=== PATIENT | male | born 1950 | race Two or more races ===

== ENCOUNTER 2020-02-16 16:07 | Inpatient (IN) | payer OTHER ==
[~2020-02-16] VITALS: Ht 180.3 cm; Wt 68.0 kg
[2020-02-16] MEDS: Enoxaparin 40mg Inj SUBQ SCH (01:58)
--- NOTE | 2020-02-16 16:09 | NUR ---
ED Nurse Note: pt brought in by [address] for to etoh consumption. pt is alert x3. able to make needs known,.
[2020-02-16 16:10] VITALS: BP 130/80
--- NOTE | 2020-02-16 16:15 | Emergency Room Report ---
History of Present Illness General Chief Complaint: Alcohol Intoxication Source: EMS (Michaela Reyna) Present Illness HPI 67-year-old male presents to the emergency department brought by ambulance for altered level of consciousness. EMS was called by bystander. Per EMS there is a strong "scent of alcohol "coming from the patient. Patient is ANO x1. Originally a Aleksandr Pena upon arrival however patient states his name is "ship "he is arousable and provides limited answers to HPI and ROS questions. Patient denies past medical history he states he is not taking any medications. He denies pain at this time. Patient denies difficulty breathing, headache, dizziness or recent fall. He denies neck or back pain. Patient reports that he is "tired "the patient reports that he does not have any family to contact. No other aggravating or relieving factors. (Michaela Reyna) Allergies: Coded Allergies: No Known Allergies (Unverified , 02/16/20) COVID-19 Screening Contact w/high risk pt: No Recent Travel to affected area: No Experienced COVID-19 symptoms?: No (Michaela Reyna) Patient History Past Medical History: see triage record Past Surgical History: none Pertinent Family History: none Reviewed Nursing Documentation: PMH: Agreed; PSxH: Agreed (Michaela Reyna) Review of Systems All Other Systems: negative except mentioned in HPI (Michaela Reyna) Physical Exam Vital Signs Date Time Temp Pulse Resp B/P (MAP) Pulse Ox O2 Delivery O2 Flow Rate FiO2 02/16/20 16:04 97.3 89 16 136/77 (96) 98 Room Air Sp02 EP Interpretation: reviewed, normal General Appearance: no apparent distress, alert - alert but not oriented., GCS 15, non-toxic, thin Head: normocephalic, atraumatic Eyes: bilateral eye normal inspection, bilateral eye PERRL ENT: hearing grossly normal, normal voice Neck: full range of motion Respiratory: chest non-tender, lungs clear, normal breath sounds, no wheezing, speaking full sentences Cardiovascular #1: regular rate, rhythm, no edema Gastrointestinal: non tender, soft Rectal: deferred Genitourinary: normal inspection Musculoskeletal: back normal, normal range of motion, gait/station normal, non- tender Neurologic: alert, sensory intact, responsive, speech normal, other - follows some commands with repeated redirectioning. able to scoot himself over in the gurney. motor weakness- generalized. Psychiatric: no suicidal/homicidal ideation, no delusions Skin: normal color, normal inspection (Michaela Reyna) Medical Decision Making PA Attestation Dr. Beebe is my supervising Physician whom patient management has been discussed with. (Michaela Reyna) PA Attestation I participate in the care of this patient along with VERA Gtz Briefly, this is 67-year-old male who was brought into the emergency department for altered mental status concern for alcohol intoxication. He is somnolent but arousable and can follow some simple commands. Alcohol level was undetectable as were salicylates and acetaminophen. The patient sodium is significantly elevated concerning for hyponatremia. IV fluid correction started. Urine electrolytes ordered. CT scan of the head was also performed which shows some diffuse encephalomalacia and an old thalamic infarct but no acute intracranial process was identified. Patient will require admission. (Leonid Beebe MD) Diagnostic Impression: Primary Impression: Acute hypernatremia ER Course 67-year-old male presents to the emergency department brought by ambulance for altered level of consciousness. EMS was called by bystander. Per EMS there is a strong "scent of alcohol "coming from the patient. Patient is ANO x1. Originally a Aleksandr Pena upon arrival however patient states his name is "ship "he is arousable and provides limited answers to HPI and ROS questions. Patient denies past medical history he states he is not taking any medications. He denies pain at this time. Patient denies difficulty breathing, headache, dizziness or recent fall. He denies neck or back pain. Patient reports that he is "tired "the patient reports that he does not have any family to contact. No other aggravating or relieving factors. Pt is still moaning, arousable to loud verbal commands, or painful stimuli-- limited answers to HPI and ROS questions. Ddx considered but are not limited to OD, SI/HI, psychosis, UTI, intoxication, intracranial process, ETOH, Sepsis Vital signs: are WNL, pt. is afebrile H&PE are most consistent with possible intoxication. There is no obvious signs of trauma. ORDERS: -CBC; -CMP: -AccuCheck: -UA: -UDS: -Psych panel ordered: see results attached - ED INTERVENTIONS: - 1000cc NS - rate of 200mls/Hr... -- calc fluid deficit: 4.6L DISPOSITION: (Michaela Reyna) CT/MRI/US Diagnostic Results CT/MRI/US Diagnostic Results : Imaging Test Ordered: CT Head No Contrast Impression " Diffuse encephalomalacia and small vessel disease and old thalamic infarct. No acute intracranial process." Per official radiology report- Please see report for specific details. (Michaela Reyna) Last Vital Signs Date Time Temp Pulse Resp B/P (MAP) Pulse Ox O2 Delivery O2 Flow Rate FiO2 02/16/20 16:04 97.3 89 16 136/77 (96) 98 Room Air (Michaela Reyna) Disposition: ADMITTED INPATIENT Condition: Serious Michaela Reyna Feb 16, 2020 16:15 Leonid Beebe MD Feb 16, 2020 17:53
--- NOTE | 2020-02-16 16:27 | NUR ---
ED Nurse Note: blood sample sent to lab. pt unable to urinate at this time.
--- NOTE | 2020-02-16 16:31 | NUR ---
ED Nurse Note: pt taken to CT scan
--- NOTE | 2020-02-16 16:40 | NUR ---
ED Nurse Note: back from ct
[2020-02-16 16:45] LABS: BASOPHILS % (AUTO) 0.9 % (0.0-2.0); EOSINOPHILS % (AUTO) 0.1 % (0.0-3.0); HEMATOCRIT 48.2 % (42.0-52.0); HEMOGLOBIN 15.6 G/DL (14.2-18.0); LYMPHOCYTES % (AUTO) 23.2 % (20.0-45.0); MEAN CORPUSCULAR VOLUME 97 FL (80-99); MONOCYTES % (AUTO) 9.3 % (1.0-10.0); NEUTROPHILS % (AUTO) 66.6 % (45.0-75.0); PLATELET COUNT 259 K/UL (150-450); RED BLOOD COUNT 4.96 M/UL (4.70-6.10); RED CELL DISTRIBUTION WIDTH 15.4 % (11.6-14.8); WHITE BLOOD COUNT 7.2 K/UL (4.8-10.8)
[2020-02-16 16:57] LABS: ANION GAP 15 mmol/L (5-15); BLOOD UREA NITROGEN 59 mg/dL (7-18); CALCIUM 9.8 MG/DL (8.5-10.1); CARBON DIOXIDE 27 MMOL/L (21-32); CHLORIDE 117 MMOL/L (98-107); CREATININE 1.9 MG/DL (0.55-1.30); POTASSIUM 3.7 MMOL/L (3.5-5.1); SODIUM 159 MMOL/L (136-145)
--- NOTE | 2020-02-16 17:09 | Diagnostic Imaging Report ---
EXAM: CT Head Without Intravenous Contrast CLINICAL HISTORY: PAIN TECHNIQUE: Axial computed tomography images of the head/brain without intravenous contrast. CTDI is 53.4 mGy and DLP is 977.7 mGy-cm. One or more of the following dose reduction techniques were used: automated exposure control, adjustment of the mA and/or kV according to patient size, use of iterative reconstruction technique. COMPARISON: No relevant prior studies available. FINDINGS: No intracranial hemorrhage, abnormal intra- or extra-axial collections or parenchymal lesions are seen. There are involutional changes with prominence of the sulci, basal cisterns and ventricles. Scattered white matter hypoattenuations are present, likely from small vessel disease. There is left inferior frontal, left cerebellar and posterior parietal and right parafalcine posterior parietal/occipital hypoattenuation/encephalomalacia. Old left thalamic infarct. The peterson- white differentiation is preserved. No evidence of mass effect or midline shift. The osseous structures are unremarkable. The visualized portions of the paranasal sinuses are clear. Mastoid air cells are clear. IMPRESSION: 1. No acute intracranial process. 2. Involutional changes with small vessel disease. 3. There is left inferior frontal, left cerebellar and posterior parietal and right parafalcine posterior parietal/occipital hypoattenuation/encephalomalacia. Old left thalamic infarct.
[2020-02-16 17:13] LABS: ALANINE AMINOTRANSFERASE 41 U/L (12-78); ALBUMIN 4.2 G/DL (3.4-5.0); ALBUMIN/GLOBULIN RATIO 1.2 (1.0-2.7); ALKALINE PHOSPHATASE 55 U/L (46-116); ASPARTATE AMINO TRANSFERASE 58 U/L (15-37); BILIRUBIN,TOTAL 0.6 MG/DL (0.2-1.0)
--- NOTE | 2020-02-16 17:50 | NUR ---
ED Nurse Note: urine sample sent to lab
[2020-02-16 18:29] LABS: APPEARANCE,URINE CLEAR; BILIRUBIN, URINE NEGATIVE (NEGATIVE); COLOR,URINE PALE YELLOW; GLUCOSE, URINE (UA) NEGATIVE (NEGATIVE); KETONES,URINE 1+ (NEGATIVE); LEUKOCYTE ESTERASE ,URINE NEGATIVE (NEGATIVE); NITRITE,URINE NEGATIVE (NEGATIVE); PH,URINE 5 (4.5-8.0); PROTEIN,URINE NEGATIVE (NEGATIVE); UROBILINOGEN,URINE NORMAL MG/DL (0.0-1.0)
--- NOTE | 2020-02-16 18:35 | NUR ---
ED Nurse Note: report given to blessing lan. endorsed plan of care
[2020-02-16 19:05] VITALS: BP 125/84
--- NOTE | 2020-02-16 19:05 | NUR ---
HAND-OFF: Report given to Leona TINAJERO.
--- NOTE | 2020-02-16 19:05 | NUR ---
ED Nurse Note: pt resting in bed, vss no ss of distress noted.
--- NOTE | 2020-02-16 20:05 | NUR ---
ED Nurse Note: pt requested warm blankets, retrieved for pt. Pt stated that his name is "Imtiaz Feliciano" but unable to obtain further information.
[2020-02-16 21:45] VITALS: BP 155/79
[2020-02-16] MEDS ORDERED: Morphine Sulfate 2mg/ml Inj(IV/IM USE ONLY) IVP PRN (22:45)
[2020-02-16] MEDS ORDERED: LORazepam Inj 2mg/ml 1ml IV PRN (22:45)
[2020-02-16 23:05] VITALS: BP 154/68
--- NOTE | 2020-02-16 23:11 | NUR ---
ED Nurse Note: Report given to LIOR Trinidad
--- NOTE | 2020-02-16 23:30 | NUR ---
ER DISCHARGE NOTE: Patient is cleared to be discharged to med surg unit per ERMD, pt is aox3, on room air, with stable vital signs. pt was able to verbalize understanding. pt took all belongings. Report given to LIOR Trinidad. Pt transported to unit with 1 dietetic technician registered
[2020-02-16] MEDS ORDERED: D5NS 1,000 ML IV SCH (23:42)
--- NOTE | 2020-02-16 23:50 | NUR ---
NURSE NOTES: Patient arrived via gurney at 2039. Sleeping, but easy arousal. On room air with no signs of distress or SOB. Skin intact, but scrape on L elbow noted. Belongings checked and accounted for. IV intact and patent. Bed locked and in lowest position. Bed alarm activated. Call light in easy reach. New orders received. Will follow plan of care.
[2020-02-17] VITALS: BP 156/81
--- NOTE | 2020-02-17 02:43 | Diagnostic Imaging Report ---
EXAM: US Retroperitoneal Complete, Renal CLINICAL HISTORY: ABD PAIN TECHNIQUE: Real-time complete ultrasound of the retroperitoneum with image documentation. COMPARISON: No relevant prior studies available. FINDINGS: Left kidney measures 10.5 cm in length. No evidence of obstructive uropathy. No solid left renal mass identified. Diffuse increased echogenicity suggesting chronic medical renal disease. Echogenic kidneys are relatively large in size can be seen with HIV nephropathy. The right kidney measures 10.6 cm in length. No solid masses or evidence of obstructive uropathy. The urinary bladder is grossly unremarkable.
[2020-02-17 04:00] VITALS: BP 143/78
[2020-02-17 08:00] VITALS: BP 158/84
[2020-02-17 09:17] LABS: ALANINE AMINOTRANSFERASE 42 U/L (12-78); ALBUMIN 3.9 G/DL (3.4-5.0); ALBUMIN/GLOBULIN RATIO 1.3 (1.0-2.7); ALKALINE PHOSPHATASE 53 U/L (46-116); ANION GAP 11 mmol/L (5-15); ASPARTATE AMINO TRANSFERASE 59 U/L (15-37); BILIRUBIN,TOTAL 0.7 MG/DL (0.2-1.0); BLOOD UREA NITROGEN 39 mg/dL (7-18); CALCIUM 9.3 MG/DL (8.5-10.1); CARBON DIOXIDE 28 MMOL/L (21-32); CHLORIDE 125 MMOL/L (98-107); CHOLESTEROL 249 MG/DL (< 200); CREATININE 1.2 MG/DL (0.55-1.30); HDL CHOLESTEROL 92 MG/DL (40-60); POTASSIUM 3.7 MMOL/L (3.5-5.1); TRIGLYCERIDES 69 MG/DL (30-150)
[2020-02-17 09:18] LABS: SODIUM 165 MMOL/L (136-145)
--- NOTE | 2020-02-17 09:43 | NUR ---
NURSE NOTES: patient Na 165, got orders from dr. oJhnson, also notified dr Ferguson, left message as per dr Johnson request.
[2020-02-17 10:17] LABS: PHOSPHORUS 3.1 MG/DL (2.5-4.9)
[2020-02-17] MEDS ORDERED: Thiamine HCl 100 MG in D5W 55 ML IVPB SCH (11:00)
[2020-02-17 12:00] VITALS: BP 175/100
--- NOTE | 2020-02-17 12:25 | Consultation ---
Consult Note Consult Note Chief Complaint: Alcohol Intoxication 67-year-old male presents to the emergency department brought by ambulance for altered level of consciousness. EMS was called by bystander. Per EMS there is a strong "scent of alcohol "coming from the patient. Patient is ANO x1. Originally a Aleksandr Pena upon arrival however patient states his name is "ship "he is arousable and provides limited answers to HPI and ROS questions. Patient denies past medical history he states he is not taking any medications. He denies pain at this time. Patient denies difficulty breathing, headache, dizziness or recent fall. He denies neck or back pain. Patient reports that he is "tired "the patient reports that he does not have any family to contact. No other aggravating or relieving factors. No Known Allergies (Unverified , 02/16/20) COVID-19 Screening Contact w/high risk pt: No Recent Travel to affected area: No Experienced COVID-19 symptoms?: No Patient seen and examined Data reviewed Assessment/Plan Patient presents with renal failure creatinine of 1.9 Most likely dehydration Hypernatremia indicative free water deficit Alcohol abuse Hydrate with D5W Monitor electrolytes and renal parameters IV thiamine Start p.o. as soon as the patient is more awake Speech therapy evaluation Per orders Landon Ferguson MD Feb 17, 2020 12:25
--- NOTE | 2020-02-17 12:39 | History & Physical ---
History and Physical History & Physicial Patient seen and examined. Full Dictation completed Price Johnson MD Feb 17, 2020 12:39
[2020-02-17 16:00] VITALS: BP 164/98
--- NOTE | 2020-02-17 17:45 | History and Physical Report ---
DATE OF ADMISSION: 02/16/2020 SOURCE OF INFORMATION: The patient and EMR. HISTORY OF PRESENT ILLNESS: The patient is a 67-year-old male who presented with confusion to the ER. He was found to have a high level of sodium, poor historian. Source of information is from the ER documentation. Reportedly, the patient had been transferred via EMS given the high scent of alcohol. Presumptively the patient has been using high level of alcohol. At the time of evaluation, the patient appears delirious. REVIEW OF SYSTEMS: Limited as mentioned above. SOCIAL HISTORY: Unobtainable. ALLERGIES: Unobtainable. FAMILY HISTORY: Unobtainable. PAST MEDICAL AND SURGICAL HISTORY: Unobtainable. PHYSICAL EXAMINATION: VITAL SIGNS: Blood pressure 140/80, temperature 98.2, pulse oximetry 98% on room air, temperature 97.3, respiratory rate 18. HEAD AND NECK: Atraumatic and normocephalic. CHEST: Clear to auscultation. HEART: S1 and S2. Regular rate and rhythm. ABDOMEN: Soft. No organomegaly. MUSCULOSKELETAL: No gross lateralization of motor deficit. NEUROLOGIC: The patient is delirious. DIAGNOSTIC DATA: Head CT head 02/16/2020 reviewed. ASSESSMENT: 1. Acute toxic encephalopathy. 2. CVA-history of. 3. Hypernatremia. 4. Acute renal failure. 5. Dehydration. 6. Abnormal LFT. 7. GI and DVT prophylaxis. PLAN OF CARE: We will continue with hydration. We will do panculture. We will check hepatitis panel. Nephrology consulted. Time of this dictation does not reflect the actual time of encounter. Price Johnson M.D. DR: Jatinder JOB#: [id number] CC:
[2020-02-17] MEDS ORDERED: LORazepam Inj 2mg/ml 1ml IM PRN (19:30)
--- NOTE | 2020-02-17 19:30 | NUR ---
HAND-OFF: Report given to LIOR Hopkins.
--- NOTE | 2020-02-17 19:30 | Initial Psychiatric Evaluation ---
Psychiatry Consultation Psychiatry Consultation Chief Complaint: Alcohol Intoxication Allergies: Coded Allergies: No Known Allergies (Unverified , 02/16/20) Patient History History Provided By: Patient, Medical Record Objective Data Height (Feet): 5 Height (Inches): 11.00 Weight (Pounds): 150 Appearance: disheveled Behavior Mannerisms: good eye contact Speech: clear Additional Comments: mood is anxious. Affect is flat. Thought process, there is a paucity of thought content. Thought content, no suicidal or homicidal ideation. Cognition is impaired. Insight and judgment, impaired. Assessment/Plan Status: stable Diagnosis Beverly I: Alcohol dependence. PLAN: 1. Thiamine 100 milligram. 2. Folate. 3. Ativan as needed. Brett Mora MD Feb 17, 2020 19:30
--- NOTE | 2020-02-17 19:50 | NUR ---
NURSE NOTES: Patient is resting in bed. On room air with no signs of distress or SOB. IV intact and running IVF as ordered. NPO status in progress. Bed locked and in lowest position. Bed alarm activated. Call light in reach. Will continue to monitor the patient.
[2020-02-17 20:00] VITALS: BP 169/97
--- NOTE | 2020-02-17 20:10 | NUR ---
Diet changed to NPO except ice chips/meds per Dr. Johnson.
[2020-02-17] MEDS: Enoxaparin 40mg Inj SUBQ SCH (23:45)
[2020-02-18] VITALS: BP 140/88
[2020-02-18 04:00] VITALS: BP 159/96
[2020-02-18 07:04] LABS: ALANINE AMINOTRANSFERASE 37 U/L (12-78); ALBUMIN 3.5 G/DL (3.4-5.0); ALKALINE PHOSPHATASE 51 U/L (46-116); ANION GAP 9 mmol/L (5-15); ASPARTATE AMINO TRANSFERASE 51 U/L (15-37); BILIRUBIN,TOTAL 0.7 MG/DL (0.2-1.0); BLOOD UREA NITROGEN 23 mg/dL (7-18); CALCIUM 9.2 MG/DL (8.5-10.1); CARBON DIOXIDE 30 MMOL/L (21-32); CHLORIDE 119 MMOL/L (98-107); CREATININE 1.4 MG/DL (0.55-1.30); GAMMA GLUTAMYL TRANSPEPTIDASE 21 U/L (5-85); PHOSPHORUS 2.6 MG/DL (2.5-4.9); POTASSIUM 3.4 MMOL/L (3.5-5.1); SODIUM 158 MMOL/L (136-145)
[2020-02-18 07:10] LABS: BASOPHILS % (AUTO) 3.1 % (0.0-2.0); EOSINOPHILS % (AUTO) 1.1 % (0.0-3.0); HEMATOCRIT 44.3 % (42.0-52.0); HEMOGLOBIN 15.7 G/DL (14.2-18.0); LYMPHOCYTES % (AUTO) 38.3 % (20.0-45.0); MEAN CORPUSCULAR VOLUME 92 FL (80-99); MONOCYTES % (AUTO) 10.5 % (1.0-10.0); PLATELET COUNT 220 K/UL (150-450); RED BLOOD COUNT 4.84 M/UL (4.70-6.10); RED CELL DISTRIBUTION WIDTH 14.7 % (11.6-14.8); WHITE BLOOD COUNT 5.2 K/UL (4.8-10.8)
--- NOTE | 2020-02-18 07:14 | NUR ---
NURSE NOTES: Potassium noted to be 3.4; Sodium 158. Left message for Dr. Ferguson. Awaiting orders.
--- NOTE | 2020-02-18 07:15 | NUR ---
HAND-OFF: Report given to LIOR Moscoso. Endorsed plan of care and fall risk status.
[2020-02-18 08:00] VITALS: BP 145/80
[2020-02-18] MEDS ORDERED: HydrALAZINE 25mg tab ORAL PRN (08:00)
--- NOTE | 2020-02-18 08:00 | NUR ---
NURSE NOTES: received pt seated at the edge of the bed, pt had urinated on floor. Nurse cleaned the floor. He also pulled off IV access, dry blood seen at previous IV site. Patient is confuse, can't understand nurse's commands, repeats her sometimes. Bed locked at the lowest position possible, call light within easy reach, siderails up x2. Patient is fall risk, wears yellow gown and yellow wrist brand. Fall risk sign at the front door wall. Willcontinue to monitor patient and follow up with the plan of care.
[2020-02-18] MEDS: Tamsulosin 0.4mg cap ORAL SCH ×2 (08:58→17:33)
[2020-02-18 12:00] VITALS: BP 140/86
--- NOTE | 2020-02-18 12:00 | NUR ---
ST NOTES: THIS 67 Y.O.M. WAS REFERRED FOR A SWALLOWING EVALUATION BY DR DING (PRIMARY MD DR CANO). DYSPHAGIA AND ASPIRATION RISK FACTORS: ACUTE ISSUES: AMS TOXIC ENCEPHALOPATHY, ALCOHOL INTOXICATION, HYPERNATREMIA, ABNORMAL LFT, RENAL FAILURE, LUNGS CLEAR PER MD RESP RATE 18 AND SP02 97% ON ROOM AIR, HAS HIGH BLOOD PRESSURE, ON GERD MEDS. H/O CVAS (SEE CT HEAD SCAN), PER PT H/O CIGARETTE SMOKING (NOT SPECIFIC FOR HOW MUCH/LONG). HOMELESS PER MEDICAL RECORD ? DIET TYPE/TEXTURE 02/16/20 PLACED ON REGULAR DIET TYPE/TEXTURE THEN CHANGED TO NPO EXCEPT ICE CHIPS/MEDS. PER RN, BRITTANY, GOOD TOLERANCE FOR MEDS WHOLE WITH WATER W/O OVERT ASPIRATION. ALERT AND ABLE EXPRESS BASIC NEEDS. DENIED SWALLOWING PROBLEMS BUT SEEN SWALLOWING WATER FROM THE [place] (COUGHED). DID NOW ANSWER SOME QUESTIONS (NO RESPONSE) ABOUT ORIENTATION BUT DID SAY HE SMOKED CIGARETTES BEFORE (DID NOT SPECIFY HOW MANY AND HOW LONG NOR IF HE WAS STILL SMOKING). EDENTULOUS AND NO DENTURES. REST RATE GOOD AT 18 BPM AND GOOD O2 SATS AT 97% ON ROOM AIR. 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 GIVEN THIN LIQUIDS VIA STRAW SEQUENTIAL SIPS, GROSSLY FUNCTIONAL SWALLOW NO OVERT ASPIRATION (20 BPM FROM 18 BPM DECREASED WITH REST 2 MIN). PT OBSERVED TO COUGH ? ASPIRATE X 2 WITH THIN LIQUIDS VIA CUP AT SINK GIVEN TSP PUREED, GROSSLY FUNCTIONAL SWALLOW, NO OVERT ASPIRATION GIVEN 1/2 SALTINE CRACKER NO DENTITION, CHEWED FOR 15 SECONDS AND NEEDED LIQUID WASH TO CLEAR, NO OVERT ASPIRATION HAS SILENT ASPIRATION RISK (DUE TO OLD CVAS) BUT LUNGS ARE CLEAR NOW. RECOMMENDATIONS. CONSIDER MOD BARIUM SWALLOW STUDY MBSS IP OR OP IF DC TO FURTHER ASSESS SWALLOW, DETERMINE SILENT ASPIRATION RISK AND ATTEMPT TRIAL TX TECHNIQUES. IF PO GIVEN FOR QUALITY OF LIFE, CONSIDER SENDING MECH SOFT GROUND AND NECTAR THICK LIQUIDS WITH POSTED ASP/REFLUX (ON GERD MEDS) AND ONE TO ONE FEEDING. DIET TYPE AND HIGH CALORIE SUPPLEMENTS IF INDICATED AND PER DIETITIAN. SKILLED DYSPHAGIA MANAGEMENT AND TX AND COG-COM EVAL/TX EDUCATED/TRAINED RN IN POSTED PRECAUTIONS. DR DING AGREED WITH RECOMMENDATIONS
--- NOTE | 2020-02-18 12:26 | Cardiac Electrophysiology PN ---
Subjective Subjective [id number] Objective Last 24 Hour Vital Signs Date Time Temp Pulse Resp B/P (MAP) Pulse Ox O2 Delivery O2 Flow Rate FiO2 02/18/20 08:00 98.7 90 18 145/80 (101) 97 02/18/20 04:00 98.0 88 18 159/96 (117) 97 02/18/20 00:00 98.9 89 18 140/88 (105) 95 02/17/20 21:00 Room Air 02/17/20 20:00 99.0 98 18 169/97 (121) 96 02/17/20 16:00 98.6 94 18 164/98 (120) 97 Intake and Output 02/17/20 02/18/20 19:00 07:00 Intake Total 931 ml Balance 931 ml Intake IV Total 931 ml # Voids 3 3 Laboratory Tests Test 02/17/20 22:42 02/18/20 05:30 Troponin I 0.038 ng/mL (0.000-0.056) 0.022 ng/mL (0.000-0.056) White Blood Count 5.2 K/UL (4.8-10.8) Red Blood Count 4.84 M/UL (4.70-6.10) Hemoglobin 15.7 G/DL (14.2-18.0) Hematocrit 44.3 % (42.0-52.0) Mean Corpuscular Volume 92 FL (80-99) Mean Corpuscular Hemoglobin 32.5 PG (27.0-31.0) H Mean Corpuscular Hemoglobin Concent 35.5 G/DL (32.0-36.0) Red Cell Distribution Width 14.7 % (11.6-14.8) Platelet Count 220 K/UL (150-450) Mean Platelet Volume 6.8 FL (6.5-10.1) Neutrophils (%) (Auto) 47.0 % (45.0-75.0) Lymphocytes (%) (Auto) 38.3 % (20.0-45.0) Monocytes (%) (Auto) 10.5 % (1.0-10.0) H Eosinophils (%) (Auto) 1.1 % (0.0-3.0) Basophils (%) (Auto) 3.1 % (0.0-2.0) H Sodium Level 158 MMOL/L (136-145) H Potassium Level 3.4 MMOL/L (3.5-5.1) L Chloride Level 119 MMOL/L (98-107) H Carbon Dioxide Level 30 MMOL/L (21-32) Anion Gap 9 mmol/L (5-15) Blood Urea Nitrogen 23 mg/dL (7-18) H Creatinine 1.4 MG/DL (0.55-1.30) H Estimat Glomerular Filtration Rate 50.9 mL/min (>60) Glucose Level 112 MG/DL (74-106) H Hemoglobin A1c 5.7 % (4.3-6.0) Uric Acid 7.7 MG/DL (2.6-7.2) H Calcium Level 9.2 MG/DL (8.5-10.1) Phosphorus Level 2.6 MG/DL (2.5-4.9) Magnesium Level 2.3 MG/DL (1.8-2.4) Total Bilirubin 0.7 MG/DL (0.2-1.0) Gamma Glutamyl Transpeptidase 21 U/L (5-85) Aspartate Amino Transf (AST/SGOT) 51 U/L (15-37) H Alanine Aminotransferase (ALT/SGPT) 37 U/L (12-78) Alkaline Phosphatase 51 U/L (46-116) C-Reactive Protein, Quantitative 0.6 mg/dL (0.00-0.90) Pro-B-Type Natriuretic Peptide 248 pg/mL (0-125) H Total Protein 7.1 G/DL (6.4-8.2) Albumin 3.5 G/DL (3.4-5.0) Globulin 3.6 g/dL Albumin/Globulin Ratio 1.0 (1.0-2.7) Axel Interiano MD Feb 18, 2020 12:26
--- NOTE | 2020-02-18 12:59 | NUR ---
CASE MANAGEMENT: REVIEW 67 YEAR OLD MALE BIBA FROM THE STREET CC: ALCOHOL INTOXICATION SI: ENCEPHALOPATHY . T 97.3 HR 89 RR 16 BP 155/79 SAT 98% ROOM AIR NA 165 SERUM ALCOHOL <3 CT HEAD -- NO ACUTE INTRACRANIAL PROCESS US RENAL -- NO EVIDENCE OF OBSTRUCTIVE UROPATHY IS: NS IVF BOLUS X1 D5W IV BOLUS X1 MORPHINE 1MG IV X1 PATIENT ADMITTED TO MED/SURG UNIT02/16/2020 DCP: PATIENT REPORTS HOMELESSNESS
--- NOTE | 2020-02-18 13:06 | Nephrology Progress Note ---
Assessment/Plan Problem List: (1) Dehydration (2) ALEXANDER (acute kidney injury) (3) Acute hypernatremia (4) HTN (hypertension) Assessment Patient presents with renal failure creatinine of 1.9 Most likely dehydration Hypernatremia indicative free water deficit Alcohol abuse Hydrate with D5W Monitor electrolytes and renal parameters IV thiamine Start p.o. as soon as the patient is more awake Speech therapy evaluation Per orders Plan [facility] for blood pressure Serum creatinine 1.4 today serum sodium is declining Hydrate with D5W Monitor electrolytes and renal parameters Po folate and thiamine A regular diet now Speech therapy evaluation Per orders Subjective ROS Limited/Unobtainable: No Constitutional: Reports: malaise Objective Objective Last 24 Hour Vital Signs Date Time Temp Pulse Resp B/P (MAP) Pulse Ox O2 Delivery O2 Flow Rate FiO2 02/18/20 08:00 98.7 90 18 145/80 (101) 97 02/18/20 04:00 98.0 88 18 159/96 (117) 97 02/18/20 00:00 98.9 89 18 140/88 (105) 95 02/17/20 21:00 Room Air 02/17/20 20:00 99.0 98 18 169/97 (121) 96 02/17/20 16:00 98.6 94 18 164/98 (120) 97 Intake and Output 02/17/20 02/18/20 19:00 07:00 Intake Total 931 ml Balance 931 ml Intake IV Total 931 ml # Voids 3 3 Laboratory Tests 02/17/20 22:42: Troponin I 0.038 02/18/20 05:30: Troponin I 0.022, White Blood Count 5.2, Red Blood Count 4.84, Hemoglobin 15.7, Hematocrit 44.3, Mean Corpuscular Volume 92, Mean Corpuscular Hemoglobin 32.5H, Mean Corpuscular Hemoglobin Concent 35.5, Red Cell Distribution Width 14.7, Platelet Count 220, Mean Platelet Volume 6.8, Neutrophils (%) (Auto) 47.0, Lymphocytes (%) (Auto) 38.3, Monocytes (%) (Auto) 10.5H, Eosinophils (%) (Auto) 1.1, Basophils (%) (Auto) 3.1H, Sodium Level 158H, Potassium Level 3.4L, Chloride Level 119H, Carbon Dioxide Level 30, Anion Gap 9, Blood Urea Nitrogen 23H, Creatinine 1.4H, Estimat Glomerular Filtration Rate 50.9, Glucose Level 112H, Hemoglobin A1c 5.7, Uric Acid 7.7H, Calcium Level 9.2, Phosphorus Level 2.6, Magnesium Level 2.3, Total Bilirubin 0.7, Gamma Glutamyl Transpeptidase 21 , Aspartate Amino Transf (AST/SGOT) 51H, Alanine Aminotransferase (ALT/SGPT) 37 , Alkaline Phosphatase 51, C-Reactive Protein, Quantitative 0.6, Pro-B-Type Natriuretic Peptide 248H, Total Protein 7.1, Albumin 3.5, Globulin 3.6, Albumin/ Globulin Ratio 1.0 Height (Feet): 5 Height (Inches): 11.00 Weight (Pounds): 150 General Appearance: no apparent distress Objective no change Landon Ferguson MD Feb 18, 2020 13:06
--- NOTE | 2020-02-18 13:10 | NUR ---
Social Work This SW received a referral regarding homelessness. This SW met with patient who appears confused, pulling on is IV. Patient has a history of alcohol abuse. Pending progress; Sw to follow when more coherent.
--- NOTE | 2020-02-18 13:32 | General Progress Note ---
Assessment/Plan Assessment/Plan: S: I am ok O: seems more awake PHYSICAL EXAMINATION: HEAD AND NECK: Atraumatic and normocephalic. CHEST: Clear to auscultation. HEART: S1 and S2. Regular rate and rhythm. ABDOMEN: Soft. No organomegaly. MUSCULOSKELETAL: No gross lateralization of motor deficit. NEUROLOGIC: The patient is less delirious. AOx 2 today DIAGNOSTIC DATA: Head CT head 02/18/2020 reviewed. ASSESSMENT: 1. Acute toxic encephalopathy. 2. CVA-history of. 3. Hypernatremia. 4. Acute renal failure. 5. Dehydration. 6. Abnormal LFT. 7. GI and DVT prophylaxis. PLAN OF CARE: Continue current mgt Subjective Allergies: Coded Allergies: No Known Allergies (Unverified , 02/16/20) Objective Last 24 Hour Vital Signs Date Time Temp Pulse Resp B/P (MAP) Pulse Ox O2 Delivery O2 Flow Rate FiO2 02/18/20 08:00 98.7 90 18 145/80 (101) 97 02/18/20 04:00 98.0 88 18 159/96 (117) 97 02/18/20 00:00 98.9 89 18 140/88 (105) 95 02/17/20 21:00 Room Air 02/17/20 20:00 99.0 98 18 169/97 (121) 96 02/17/20 16:00 98.6 94 18 164/98 (120) 97 Intake and Output 02/17/20 02/18/20 19:00 07:00 Intake Total 931 ml Balance 931 ml Intake IV Total 931 ml # Voids 3 3 Laboratory Tests 02/17/20 22:42: Troponin I 0.038 02/18/20 05:30: Troponin I 0.022, White Blood Count 5.2, Red Blood Count 4.84, Hemoglobin 15.7, Hematocrit 44.3, Mean Corpuscular Volume 92, Mean Corpuscular Hemoglobin 32.5H, Mean Corpuscular Hemoglobin Concent 35.5, Red Cell Distribution Width 14.7, Platelet Count 220, Mean Platelet Volume 6.8, Neutrophils (%) (Auto) 47.0, Lymphocytes (%) (Auto) 38.3, Monocytes (%) (Auto) 10.5H, Eosinophils (%) (Auto) 1.1, Basophils (%) (Auto) 3.1H, Sodium Level 158H, Potassium Level 3.4L, Chloride Level 119H, Carbon Dioxide Level 30, Anion Gap 9, Blood Urea Nitrogen 23H, Creatinine 1.4H, Estimat Glomerular Filtration Rate 50.9, Glucose Level 112H, Hemoglobin A1c 5.7, Uric Acid 7.7H, Calcium Level 9.2, Phosphorus Level 2.6, Magnesium Level 2.3, Total Bilirubin 0.7, Gamma Glutamyl Transpeptidase 21 , Aspartate Amino Transf (AST/SGOT) 51H, Alanine Aminotransferase (ALT/SGPT) 37 , Alkaline Phosphatase 51, C-Reactive Protein, Quantitative 0.6, Pro-B-Type Natriuretic Peptide 248H, Total Protein 7.1, Albumin 3.5, Globulin 3.6, Albumin/ Globulin Ratio 1.0 Height (Feet): 5 Height (Inches): 11.00 Weight (Pounds): 150 Price Johnson MD Feb 18, 2020 13:32
[2020-02-18] MEDS: Thiamine 100mg tab ORAL SCH (13:45)
[2020-02-18] MEDS ORDERED: Vitamin D 50,000 units cap ORAL SCH (15:00)
[2020-02-18 16:05] VITALS: BP 136/82
--- NOTE | 2020-02-18 18:00 | NUR ---
NURSE NOTES: notified dr. Johnson pt pulled out IV access 2x, no IV access on pt.
--- NOTE | 2020-02-18 18:29 | Consultation ---
DATE OF CONSULTATION: 02/18/2020 CARDIOLOGY CONSULTATION CONSULTING PHYSICIAN: Axel Interiano M.D. REFERRING PHYSICIAN: Price Johnson M.D. REASON FOR CONSULTATION: Accelerated hypertension. HISTORY OF PRESENT ILLNESS: Patient is a 67-year-old gentleman with history of hypertension who was brought to the emergency for altered level of consciousness. EMS was called by the bystanders as patient had a strong scent of alcohol. Patient originally was admitted as Aleksandr Pena and subsequently was found that his name was Braden Kitchen. Patient's blood pressure has been high and a Cardiology consultation was obtained for further management. REVIEW OF SYSTEMS: Negative other than what was mentioned in the history of present illness. PAST MEDICAL HISTORY: Significant for hypertension. FAMILY HISTORY: Noncontributory. SOCIAL HISTORY: He has a history of heavy alcohol use. PHYSICAL EXAMINATION: VITAL SIGNS: Show blood pressure of 145/80, pulse is 90, respirations 18, and temperature 98.7. HEAD AND NECK: Showed no JVD or carotid bruits. LUNGS: Clear. CARDIOVASCULAR: Regular S1 and S2 with no gallop or murmur. ABDOMEN: Soft. EXTREMITIES: No pitting edema. LABORATORY AND DIAGNOSTIC DATA: His labs show white count of 5.7, hemoglobin of 14.7, hematocrit 44.3, and platelet count is 220. Sodium is originally 165, went down to 158, potassium 3.4, BUN of 39, and creatinine 1.2 improved to 23 and 1.4, and glucose of 112. Troponin is negative x2. ASSESSMENT AND PLAN: 1. Accelerated hypertension. His blood pressure was as high as 170s. Currently on p.r.n. clonidine and p.r.n. hydralazine. We will start the patient on Norvasc 5 mg b.i.d. and continue to follow the patient clinically. 2. Heavy alcohol use. Patient is on thiamine and folate. Further evaluation by Dr. Mora. 3. Altered mental status due to the alcohol. 4. Benign prostatic hypertrophy on Flomax. 5. Severe hypernatremia. Patient is getting IV fluids and hydration and management by Dr. Ferguson. Sodium is improved from 165 to 158. 6. Hypokalemia. 7. Azotemia, again improving. Patient has already ruled out for myocardial infarction. 8. Elevated BNP of 248. Echocardiogram is pending to evaluate for ejection fraction and wall motion abnormality. Thank you very much for allowing me to participate in the care of this patient. Please do not hesitate to contact me for any questions regarding my evaluation. Axel Interiano M.D. DR: NUNU JOB#: [id number] CC:
--- NOTE | 2020-02-18 19:24 | NUR ---
HAND-OFF: Report given to LIOR Torrez.
--- NOTE | 2020-02-18 19:47 | NUR ---
NURSE NOTES: Received patient awake, alert, verbal, follows simple command, comfortably resting in bed.
[2020-02-18 20:04] VITALS: BP 130/80
[2020-02-18] MEDS: Enoxaparin 40mg Inj SUBQ SCH (23:36)
[2020-02-19 04:17] VITALS: BP 148/90
--- NOTE | 2020-02-19 04:45 | Progress Note ---
DATE: 02/16/2020 SUBJECTIVE: The patient is in bed. No acute distress noted. The patient is minimally verbal. MENTAL STATUS EXAMINATION: Mood is neutral to anxious. Affect is flat. Thought process, there is a paucity of thought content. Thought content, no suicidal or homicidal ideation. Cognition is impaired. Insight and judgment, impaired. ASSESSMENT: Alcohol dependence. PLAN: 1. Thiamine 100 milligram. 2. Folate. 3. Ativan as needed. Brett Mora M.D. DR: Thelma JOB#: [id number] CC:
[2020-02-19 07:17] LABS: ALANINE AMINOTRANSFERASE 44 U/L (12-78); ALBUMIN 3.2 G/DL (3.4-5.0); ALKALINE PHOSPHATASE 44 U/L (46-116); ANION GAP 9 mmol/L (5-15); ASPARTATE AMINO TRANSFERASE 47 U/L (15-37); BILIRUBIN,TOTAL 0.5 MG/DL (0.2-1.0); BLOOD UREA NITROGEN 20 mg/dL (7-18); CALCIUM 8.5 MG/DL (8.5-10.1); CARBON DIOXIDE 27 MMOL/L (21-32); CHLORIDE 114 MMOL/L (98-107); CREATININE 1.1 MG/DL (0.55-1.30); PHOSPHORUS 2.6 MG/DL (2.5-4.9); POTASSIUM 3.5 MMOL/L (3.5-5.1); SODIUM 150 MMOL/L (136-145)
[2020-02-19 07:27] LABS: BASOPHILS % (AUTO) 1.3 % (0.0-2.0); EOSINOPHILS % (AUTO) 2.7 % (0.0-3.0); HEMATOCRIT 42.3 % (42.0-52.0); HEMOGLOBIN 14.7 G/DL (14.2-18.0); LYMPHOCYTES % (AUTO) 36.6 % (20.0-45.0); MEAN CORPUSCULAR VOLUME 92 FL (80-99); MONOCYTES % (AUTO) 7.9 % (1.0-10.0); NEUTROPHILS % (AUTO) 51.6 % (45.0-75.0); PLATELET COUNT 196 K/UL (150-450); RED CELL DISTRIBUTION WIDTH 13.5 % (11.6-14.8); WHITE BLOOD COUNT 5.3 K/UL (4.8-10.8)
--- NOTE | 2020-02-19 07:42 | NUR ---
HAND-OFF: Report given to Antonio Ireland RN.
[2020-02-19 08:00] VITALS: BP 164/79
--- NOTE | 2020-02-19 08:37 | NUR ---
NURSE NOTES: pt is in the bed awake, breathing even and non-labored. denies any pain and discomfort. no acute distress noted at this time. place call light within reach.
[2020-02-19] MEDS: Thiamine 100mg tab ORAL SCH (09:24)
[2020-02-19] MEDS: Tamsulosin 0.4mg cap ORAL SCH ×2 (09:25→18:09)
--- NOTE | 2020-02-19 11:39 | NUR ---
CASE MANAGEMENT: REVIEW SI: ENCEPHALOPATHY . ALCOHOL DEPENDENCE . ALOC . HTN T 98.2 HR 82 RR 18 BP 164/79 SAT 99% ROOM AIR NA 150 BUN 20 AST 47 BNP 369 IS: D5W IVF @ 125ML/HR VIT B1 100MG PO QD ATIVAN 2MG IM Q4HR PRN CLONIDINE 0.1MG PO Q2HR PRN MECH SOFT DIET w/NTL ALCOHOL WITHDRAWAL ASSESSMENT MED/SURG UNIT STATUS DCP: PATIENT REPORTS HOMELESSNESS. SW TRYING TO LOCATE FAMILY
[2020-02-19 12:00] VITALS: BP 163/82
--- NOTE | 2020-02-19 12:02 | Cardiac Electrophysiology PN ---
Assessment/Plan Assessment/Plan 1. Accelerated hypertension. His blood pressure was as high as 170s. Currently on p.r.n. clonidine and p.r.n. hydralazine. On Norvasc 5 mg b.i.d. 2. Heavy alcohol use. Patient is on thiamine and folate. Further evaluation by Dr. Mora. 3. Altered mental status due to the alcohol. 4. Benign prostatic hypertrophy on Flomax. 5. Severe hypernatremia. Patient is getting IV fluids and hydration and management by Dr. Ferguson. Sodium is improved from 165 to 158. Refusing iv fluids 6. Hypokalemia. 7. Azotemia, again improving. Patient has already ruled out for myocardial infarction. 8. Elevated BNP of 248. Echocardiogram EF 55% DW RN Subjective Subjective Alert in NAD Objective Last 24 Hour Vital Signs Date Time Temp Pulse Resp B/P (MAP) Pulse Ox O2 Delivery O2 Flow Rate FiO2 02/19/20 09:25 82 164/79 02/19/20 09:00 Room Air 02/19/20 08:00 98.2 82 18 164/79 (107) 99 02/19/20 04:17 98.2 88 18 148/90 (109) 94 02/18/20 21:29 Room Air 02/18/20 20:04 98.0 80 18 130/80 (97) 97 02/18/20 17:33 100 136/82 02/18/20 16:05 98.3 100 18 136/82 (100) 97 02/18/20 12:00 98.6 99 18 140/86 (104) 98 Intake and Output 02/18/20 02/19/20 19:00 07:00 Intake Total 310 ml Balance 310 ml Intake Oral 310 ml # Voids 3 4 Laboratory Tests Test 02/19/20 05:20 White Blood Count 5.3 K/UL (4.8-10.8) Red Blood Count 4.60 M/UL (4.70-6.10) L Hemoglobin 14.7 G/DL (14.2-18.0) Hematocrit 42.3 % (42.0-52.0) Mean Corpuscular Volume 92 FL (80-99) Mean Corpuscular Hemoglobin 31.9 PG (27.0-31.0) H Mean Corpuscular Hemoglobin Concent 34.7 G/DL (32.0-36.0) Red Cell Distribution Width 13.5 % (11.6-14.8) Platelet Count 196 K/UL (150-450) Mean Platelet Volume 7.5 FL (6.5-10.1) Neutrophils (%) (Auto) 51.6 % (45.0-75.0) Lymphocytes (%) (Auto) 36.6 % (20.0-45.0) Monocytes (%) (Auto) 7.9 % (1.0-10.0) Eosinophils (%) (Auto) 2.7 % (0.0-3.0) Basophils (%) (Auto) 1.3 % (0.0-2.0) Sodium Level 150 MMOL/L (136-145) H Potassium Level 3.5 MMOL/L (3.5-5.1) Chloride Level 114 MMOL/L (98-107) H Carbon Dioxide Level 27 MMOL/L (21-32) Anion Gap 9 mmol/L (5-15) Blood Urea Nitrogen 20 mg/dL (7-18) H Creatinine 1.1 MG/DL (0.55-1.30) Estimat Glomerular Filtration Rate > 60 mL/min (>60) Glucose Level 96 MG/DL (74-106) Calcium Level 8.5 MG/DL (8.5-10.1) Phosphorus Level 2.6 MG/DL (2.5-4.9) Magnesium Level 1.7 MG/DL (1.8-2.4) L Total Bilirubin 0.5 MG/DL (0.2-1.0) Aspartate Amino Transf (AST/SGOT) 47 U/L (15-37) H Alanine Aminotransferase (ALT/SGPT) 44 U/L (12-78) Alkaline Phosphatase 44 U/L (46-116) L Pro-B-Type Natriuretic Peptide 369 pg/mL (0-125) H Total Protein 6.5 G/DL (6.4-8.2) Albumin 3.2 G/DL (3.4-5.0) L Globulin 3.3 g/dL Albumin/Globulin Ratio 1.0 (1.0-2.7) Microbiology Date/Time Source Procedure Growth Status 02/16/20 23:14 Nasal Nares MRSA Culture - Final NO METHICILLIN RESISTANT STAPH AUREUS... Complete 02/16/20 23:14 Rectum VRE Culture - Final NO VANCOMYCIN RESISTANT ENTEROCOCCUS ... Complete 02/16/20 23:14 Rectum - Final NO CARBAPENEM-RESISTANT ENTEROBACTERI... Complete Objective HEAD AND NECK: No JVD or carotid bruits. LUNGS: Clear. CARDIOVASCULAR: Regular S1 and S2 with no gallop or murmur. ABDOMEN: Soft. EXTREMITIES: No pitting edema. Axel Interiano MD Feb 19, 2020 12:02
--- NOTE | 2020-02-19 12:17 | General Progress Note ---
Assessment/Plan Assessment/Plan: S: I am ok O: seems more awake PHYSICAL EXAMINATION: HEAD AND NECK: Atraumatic and normocephalic. CHEST: Clear to auscultation. HEART: S1 and S2. Regular rate and rhythm. ABDOMEN: Soft. No organomegaly. MUSCULOSKELETAL: No gross lateralization of motor deficit. NEUROLOGIC: The patient is less delirious. AOx 2 today DIAGNOSTIC DATA: Labs dated February 18 reviewed ASSESSMENT: 1. Acute toxic encephalopathy. 2. CVA-history of. 3. Hypernatremia. 4. Acute renal failure. 5. Dehydration. 6. Abnormal LFT. 7. GI and DVT prophylaxis. PLAN OF CARE: Continue current mgt SW- to locate RP/home safety Subjective Allergies: Coded Allergies: No Known Allergies (Unverified , 02/16/20) Objective Last 24 Hour Vital Signs Date Time Temp Pulse Resp B/P (MAP) Pulse Ox O2 Delivery O2 Flow Rate FiO2 02/19/20 09:25 82 164/79 02/19/20 09:00 Room Air 02/19/20 08:00 98.2 82 18 164/79 (107) 99 02/19/20 04:17 98.2 88 18 148/90 (109) 94 02/18/20 21:29 Room Air 02/18/20 20:04 98.0 80 18 130/80 (97) 97 02/18/20 17:33 100 136/82 02/18/20 16:05 98.3 100 18 136/82 (100) 97 Intake and Output 02/18/20 02/19/20 19:00 07:00 Intake Total 310 ml Balance 310 ml Intake Oral 310 ml # Voids 3 4 Laboratory Tests 02/19/20 05:20: White Blood Count 5.3, Red Blood Count 4.60L, Hemoglobin 14.7, Hematocrit 42.3, Mean Corpuscular Volume 92, Mean Corpuscular Hemoglobin 31.9H, Mean Corpuscular Hemoglobin Concent 34.7, Red Cell Distribution Width 13.5, Platelet Count 196, Mean Platelet Volume 7.5, Neutrophils (%) (Auto) 51.6, Lymphocytes (%) (Auto) 36.6, Monocytes (%) (Auto) 7.9, Eosinophils (%) (Auto) 2.7, Basophils (%) (Auto ) 1.3, Sodium Level 150H, Potassium Level 3.5, Chloride Level 114H, Carbon Dioxide Level 27, Anion Gap 9, Blood Urea Nitrogen 20H, Creatinine 1.1, Estimat Glomerular Filtration Rate > 60, Glucose Level 96, Calcium Level 8.5, Phosphorus Level 2.6, Magnesium Level 1.7L, Total Bilirubin 0.5, Aspartate Amino Transf (AST/SGOT) 47H, Alanine Aminotransferase (ALT/SGPT) 44, Alkaline Phosphatase 44L, Pro-B-Type Natriuretic Peptide 369H, Total Protein 6.5, Albumin 3.2L, Globulin 3.3, Albumin/Globulin Ratio 1.0 Height (Feet): 5 Height (Inches): 11.00 Weight (Pounds): 150 Price Johnson MD Feb 19, 2020 12:17
--- NOTE | 2020-02-19 13:01 | NUR ---
NURSE NOTES: pt has no IV access, attempted to insert a new line, pt refuses, explained the benefits of IV access. pt still non-compliant. Dr Elizabeth marie.
--- NOTE | 2020-02-19 13:51 | NUR ---
LAST REPAIRER HELPER NOTE SW received a consult for homeless and home safety evaluation. Pt appears as confused or A&O 1-2x. Pt reports he is residing w/ his family at [facility] [place] [address] or [place]. Pt reports having 3 adult children named Percy, Kang, and Mark. Pt has one brother named Percy Urbina. Pt denies substance abuse/ETOH abuse. Pt denies tobacco use. Pt reports he is ambulatory w/o DMEs and is independent w/ ADLs. However, pt shares he does not cook and he often goes to restaurants. Pt was unable to recall any contact information. SW spoke w/ Zeina from [employer] [phone] confirming that pt is not conserved. SW spoke w/ Detective Jewell from [facility] [phone] that pt is not reported as missing but his name sounds familiar. SALTY attempted to call possible family members: Roslyn Urbina [phone] (ringing without vm option) Percy Darerll Carlitos [phone] (not in service) [phone] (ringing w/o vm option) [phone] (left a vm) [phone] (not in service) [phone] (not in service) Addendum: 02/19/20 at 1411 by MAEGAN POND SALTY attempted to call possible family members: Kang Urbina [phone] (ringing w/o vm) [phone] (vm named Sarthak) [phone] (ringing w/o vm option) Percy Urbina [phone] (ringing w/o vm option) [phone] (not in service) [phone] (female vm) [phone] (not in service)
[2020-02-19 16:00] VITALS: BP 159/89
--- NOTE | 2020-02-19 18:33 | Nephrology Progress Note ---
Assessment/Plan Problem List: (1) Dehydration Assessment: Hyponatremia improving (2) ALEXANDER (acute kidney injury) (3) Acute hypernatremia (4) HTN (hypertension) Assessment Patient presents with renal failure creatinine of 1.9 Most likely dehydration Hypernatremia indicative free water deficit Alcohol abuse Hydrate with D5W Monitor electrolytes and renal parameters IV thiamine Start p.o. as soon as the patient is more awake Speech therapy evaluation Per orders Plan Norvas for blood pressure Serum creatinine normalizing Hydrate with D5W Potassium supplement Monitor electrolytes and renal parameters Po folate and thiamine A regular diet now Speech therapy evaluation Per orders Subjective ROS Limited/Unobtainable: No Constitutional: Reports: malaise, weakness Objective Objective Last 24 Hour Vital Signs Date Time Temp Pulse Resp B/P (MAP) Pulse Ox O2 Delivery O2 Flow Rate FiO2 02/19/20 18:09 80 159/89 02/19/20 16:00 98.9 80 17 159/89 (112) 97 02/19/20 12:37 163/82 02/19/20 12:00 98.4 85 18 163/82 (109) 98 02/19/20 09:25 82 164/79 02/19/20 09:00 Room Air 02/19/20 08:00 98.2 82 18 164/79 (107) 99 02/19/20 04:17 98.2 88 18 148/90 (109) 94 02/18/20 21:29 Room Air 02/18/20 20:04 98.0 80 18 130/80 (97) 97 Intake and Output 02/18/20 02/19/20 19:00 07:00 Intake Total 310 ml Balance 310 ml Intake Oral 310 ml # Voids 3 4 Laboratory Tests 02/19/20 05:20: White Blood Count 5.3, Red Blood Count 4.60L, Hemoglobin 14.7, Hematocrit 42.3, Mean Corpuscular Volume 92, Mean Corpuscular Hemoglobin 31.9H, Mean Corpuscular Hemoglobin Concent 34.7, Red Cell Distribution Width 13.5, Platelet Count 196, Mean Platelet Volume 7.5, Neutrophils (%) (Auto) 51.6, Lymphocytes (%) (Auto) 36.6, Monocytes (%) (Auto) 7.9, Eosinophils (%) (Auto) 2.7, Basophils (%) (Auto ) 1.3, Sodium Level 150H, Potassium Level 3.5, Chloride Level 114H, Carbon Dioxide Level 27, Anion Gap 9, Blood Urea Nitrogen 20H, Creatinine 1.1, Estimat Glomerular Filtration Rate > 60, Glucose Level 96, Calcium Level 8.5, Phosphorus Level 2.6, Magnesium Level 1.7L, Total Bilirubin 0.5, Aspartate Amino Transf (AST/SGOT) 47H, Alanine Aminotransferase (ALT/SGPT) 44, Alkaline Phosphatase 44L, Pro-B-Type Natriuretic Peptide 369H, Total Protein 6.5, Albumin 3.2L, Globulin 3.3, Albumin/Globulin Ratio 1.0 Height (Feet): 5 Height (Inches): 11.00 Weight (Pounds): 150 General Appearance: no apparent distress, lethargic Cardiovascular: normal rate Respiratory/Chest: decreased breath sounds Abdomen: soft Objective no change Landon Ferguson MD Feb 19, 2020 18:33
[2020-02-19] MEDS: Vitamin D 1000 IU Tab ORAL SCH (18:45)
--- NOTE | 2020-02-19 19:38 | NUR ---
HAND-OFF: Report given to Lore.
[2020-02-19 20:00] VITALS: BP 154/81
[2020-02-19] MEDS: Enoxaparin 40mg Inj SUBQ SCH (23:43)
[2020-02-20 00:33] VITALS: BP 154/85
[2020-02-20 04:19] VITALS: BP 144/85
[2020-02-20 06:25] LABS: BASOPHILS % (AUTO) 1.2 % (0.0-2.0); EOSINOPHILS % (AUTO) 1.9 % (0.0-3.0); HEMOGLOBIN 15.4 G/DL (14.2-18.0); MEAN CORPUSCULAR VOLUME 91 FL (80-99); MONOCYTES % (AUTO) 6.8 % (1.0-10.0); NEUTROPHILS % (AUTO) 49.1 % (45.0-75.0); PLATELET COUNT 185 K/UL (150-450); RED CELL DISTRIBUTION WIDTH 13.2 % (11.6-14.8); WHITE BLOOD COUNT 5.1 K/UL (4.8-10.8)
[2020-02-20 06:51] LABS: ALANINE AMINOTRANSFERASE 41 U/L (12-78); ALBUMIN 3.3 G/DL (3.4-5.0); ALKALINE PHOSPHATASE 49 U/L (46-116); ANION GAP 11 mmol/L (5-15); ASPARTATE AMINO TRANSFERASE 38 U/L (15-37); BILIRUBIN,TOTAL 0.5 MG/DL (0.2-1.0); BLOOD UREA NITROGEN 18 mg/dL (7-18); CALCIUM 8.8 MG/DL (8.5-10.1); CARBON DIOXIDE 26 MMOL/L (21-32); CHLORIDE 110 MMOL/L (98-107); PHOSPHORUS 2.7 MG/DL (2.5-4.9); POTASSIUM 3.7 MMOL/L (3.5-5.1); SODIUM 147 MMOL/L (136-145)
--- NOTE | 2020-02-20 07:19 | NUR ---
HAND-OFF: Report given to Emmy Rodriguez RN.
[2020-02-20 08:00] VITALS: BP 149/87
--- NOTE | 2020-02-20 08:13 | NUR ---
NURSE NOTES: Patient alert x3, on room air, no sing of distress and shortness of breath; no sing of chest pain; NO IV access MD aware; side rails up x2, breaks engaged, bed alarm on, bed at lowest position; call light within reach; will keep monitoring.
[2020-02-20] MEDS: Thiamine 100mg tab ORAL SCH (09:03)
[2020-02-20] MEDS: Tamsulosin 0.4mg cap ORAL SCH ×2 (09:03→17:16)
[2020-02-20] MEDS: Vitamin D 1000 IU Tab ORAL SCH (09:03)
--- NOTE | 2020-02-20 09:37 | General Progress Note ---
Assessment/Plan Assessment/Plan: S: I am ok O: seems more awake PHYSICAL EXAMINATION: HEAD AND NECK: Atraumatic and normocephalic. CHEST: Clear to auscultation. HEART: S1 and S2. Regular rate and rhythm. ABDOMEN: Soft. No organomegaly. MUSCULOSKELETAL: No gross lateralization of motor deficit. NEUROLOGIC: The patient is less delirious. AOx 2 today DIAGNOSTIC DATA: Labs dated February 18 reviewed ASSESSMENT: 1. Acute toxic encephalopathy. 2. CVA-history of. 3. Hypernatremia. 4. Acute renal failure. 5. Dehydration. 6. Abnormal LFT. 7. GI and DVT prophylaxis. PLAN OF CARE: Continue current mgt SW- to locate RP/home safety Subjective Allergies: Coded Allergies: No Known Allergies (Unverified , 02/16/20) Objective Last 24 Hour Vital Signs Date Time Temp Pulse Resp B/P (MAP) Pulse Ox O2 Delivery O2 Flow Rate FiO2 02/20/20 09:03 86 149/87 02/20/20 08:00 97.6 86 17 149/87 (107) 100 02/20/20 04:19 96.8 80 20 144/85 (104) 99 02/20/20 00:33 97.7 78 20 154/85 (108) 100 02/19/20 21:31 Room Air 02/19/20 20:00 96.3 85 20 154/81 (105) 98 02/19/20 18:09 80 159/89 02/19/20 16:00 98.9 80 17 159/89 (112) 97 02/19/20 12:37 163/82 02/19/20 12:00 98.4 85 18 163/82 (109) 98 Intake and Output 02/19/20 02/20/20 19:00 07:00 Intake Total 200 ml Balance 200 ml Intake Oral 200 ml # Voids 3 2 Laboratory Tests 02/20/20 05:35: White Blood Count 5.1, Red Blood Count 4.70, Hemoglobin 15.4, Hematocrit 43.0, Mean Corpuscular Volume 91, Mean Corpuscular Hemoglobin 32.7H, Mean Corpuscular Hemoglobin Concent 35.8, Red Cell Distribution Width 13.2, Platelet Count 185, Mean Platelet Volume 6.9, Neutrophils (%) (Auto) 49.1, Lymphocytes (%) (Auto) 41.0, Monocytes (%) (Auto) 6.8, Eosinophils (%) (Auto) 1.9, Basophils (%) (Auto ) 1.2, Sodium Level 147H, Potassium Level 3.7, Chloride Level 110H, Carbon Dioxide Level 26, Anion Gap 11, Blood Urea Nitrogen 18, Creatinine 1.0, Estimat Glomerular Filtration Rate > 60, Glucose Level 99, Calcium Level 8.8, Phosphorus Level 2.7, Magnesium Level 2.0, Total Bilirubin 0.5, Aspartate Amino Transf (AST/SGOT) 38H, Alanine Aminotransferase (ALT/SGPT) 41, Alkaline Phosphatase 49, C-Reactive Protein, Quantitative < 0.4, Pro-B-Type Natriuretic Peptide 520H, Total Protein 6.6, Albumin 3.3L, Globulin 3.3, Albumin/Globulin Ratio 1.0 Height (Feet): 5 Height (Inches): 11.00 Weight (Pounds): 150 Price Johnson MD Feb 20, 2020 09:37
--- NOTE | 2020-02-20 10:13 | Nephrology Progress Note ---
Assessment/Plan Problem List: (1) Dehydration Assessment: Hyponatremia improving (2) ALEXANDER (acute kidney injury) (3) Acute hypernatremia (4) HTN (hypertension) Assessment Patient presents with renal failure creatinine of 1.9 Most likely dehydration Hypernatremia indicative free water deficit Alcohol abuse Hydrate with D5W Monitor electrolytes and renal parameters IV thiamine Start p.o. as soon as the patient is more awake Speech therapy evaluation Per orders Plan Norvasc for blood pressure Add Lopressor Serum creatinine normalizing Hydrate with D5W Potassium supplement Monitor electrolytes and renal parameters Po folate and thiamine A regular diet now Speech therapy evaluation Per orders Subjective ROS Limited/Unobtainable: No Objective Objective Last 24 Hour Vital Signs Date Time Temp Pulse Resp B/P (MAP) Pulse Ox O2 Delivery O2 Flow Rate FiO2 02/20/20 09:03 86 149/87 02/20/20 09:00 Room Air 02/20/20 08:00 97.6 86 17 149/87 (107) 100 02/20/20 04:19 96.8 80 20 144/85 (104) 99 02/20/20 00:33 97.7 78 20 154/85 (108) 100 02/19/20 21:31 Room Air 02/19/20 20:00 96.3 85 20 154/81 (105) 98 02/19/20 18:09 80 159/89 02/19/20 16:00 98.9 80 17 159/89 (112) 97 02/19/20 12:37 163/82 02/19/20 12:00 98.4 85 18 163/82 (109) 98 Intake and Output 02/19/20 02/20/20 19:00 07:00 Intake Total 200 ml Balance 200 ml Intake Oral 200 ml # Voids 3 2 Laboratory Tests 02/20/20 05:35: White Blood Count 5.1, Red Blood Count 4.70, Hemoglobin 15.4, Hematocrit 43.0, Mean Corpuscular Volume 91, Mean Corpuscular Hemoglobin 32.7H, Mean Corpuscular Hemoglobin Concent 35.8, Red Cell Distribution Width 13.2, Platelet Count 185, Mean Platelet Volume 6.9, Neutrophils (%) (Auto) 49.1, Lymphocytes (%) (Auto) 41.0, Monocytes (%) (Auto) 6.8, Eosinophils (%) (Auto) 1.9, Basophils (%) (Auto ) 1.2, Sodium Level 147H, Potassium Level 3.7, Chloride Level 110H, Carbon Dioxide Level 26, Anion Gap 11, Blood Urea Nitrogen 18, Creatinine 1.0, Estimat Glomerular Filtration Rate > 60, Glucose Level 99, Calcium Level 8.8, Phosphorus Level 2.7, Magnesium Level 2.0, Total Bilirubin 0.5, Aspartate Amino Transf (AST/SGOT) 38H, Alanine Aminotransferase (ALT/SGPT) 41, Alkaline Phosphatase 49, C-Reactive Protein, Quantitative < 0.4, Pro-B-Type Natriuretic Peptide 520H, Total Protein 6.6, Albumin 3.3L, Globulin 3.3, Albumin/Globulin Ratio 1.0 Height (Feet): 5 Height (Inches): 11.00 Weight (Pounds): 150 General Appearance: no apparent distress Objective no change Landon Ferguson MD Feb 20, 2020 10:13
[2020-02-20] MEDS ORDERED: Metoprolol Tartrate 12.5mg TAB ORAL SCH (10:30)
--- NOTE | 2020-02-20 10:44 | NUR ---
LOGISTICS OPERATIONS MANAGER NOTE SW met w/ pt to obtain more information. Per pt, Roslyn Urbina is his mother and Darrell Urbina is his father. Pt is and his ex-'s name is Kavita. His SSN is [id number], is 1950 and pt reports he is receiving [employer] benefits. The other address is [address] [place] [address]. SALTY relayed all personal information to Admitting for update. This SW is unable to locate pt's family at this time. Addendum: 02/20/20 at 1123 by MAEGAN POND SW requested psych consult to determine whether pt has capacity to make his own decision. Pt presents as pleasant when engaging w/ filippo POND and is able to provide some information. SALTY spoke w/ Naida from Admitting that pt's legal name is Javier Urbina and his is 1950. However, SSN does not match with the name.
[2020-02-20 12:00] VITALS: BP 137/83
--- NOTE | 2020-02-20 12:58 | NUR ---
CASE MANAGEMENT:REVIEW SI;AC TOXIC ENCEPHALOPATHY. AC RENAL FAILURE. 98.8 86 154/85 97% ON RA NA 147 CL 110 AST 38 BNP 520 ALB 3.3 IS;IVF D5W @ 60 ML/HR K-DUR PO QD PROTONIX PO Q12 HRS VIT B1 PO QD FLOMAX PO BID LOVENOX SUBQ Q24 HRS NORVASC PO QD LOPRESSOR PO Q12 HRS MED SURG STATUS DCP;PATIENT IS HOMELESS PLAN;SW TO LOCATE RP/HOME SAFETY EVAL
--- NOTE | 2020-02-20 13:59 | Cardiac Electrophysiology PN ---
Assessment/Plan Assessment/Plan 1. Accelerated hypertension as high as 170s. Currently on Norvasc 5 mg b.i.d. and p.r.n. clonidine and hydralazine. 2. Heavy alcohol use. Patient is on thiamine and folate. Further evaluation by Dr. Mora. 3. Altered mental status due to the alcohol. 4. Benign prostatic hypertrophy on Flomax. 5. Severe hypernatremia. Improved with IV fluids by Dr. Ferguson. Sodium is improved from 165 to 147. 6. Hypokalemia. 7. Azotemia, again improving. Patient has already ruled out for myocardial infarction. 8. Elevated BNP of 248. Echocardiogram EF 55% DW RN Subjective Subjective Alert in NAD. Wants to go home. Objective Last 24 Hour Vital Signs Date Time Temp Pulse Resp B/P (MAP) Pulse Ox O2 Delivery O2 Flow Rate FiO2 02/20/20 12:00 98.8 80 18 137/83 (101) 97 02/20/20 11:33 86 149/87 02/20/20 09:03 86 149/87 02/20/20 09:00 Room Air 02/20/20 08:00 97.6 86 17 149/87 (107) 100 02/20/20 04:19 96.8 80 20 144/85 (104) 99 02/20/20 00:33 97.7 78 20 154/85 (108) 100 02/19/20 21:31 Room Air 02/19/20 20:00 96.3 85 20 154/81 (105) 98 02/19/20 18:09 80 159/89 02/19/20 16:00 98.9 80 17 159/89 (112) 97 Intake and Output 02/19/20 02/20/20 19:00 07:00 Intake Total 200 ml Balance 200 ml Intake Oral 200 ml # Voids 3 2 Laboratory Tests Test 02/20/20 05:35 White Blood Count 5.1 K/UL (4.8-10.8) Red Blood Count 4.70 M/UL (4.70-6.10) Hemoglobin 15.4 G/DL (14.2-18.0) Hematocrit 43.0 % (42.0-52.0) Mean Corpuscular Volume 91 FL (80-99) Mean Corpuscular Hemoglobin 32.7 PG (27.0-31.0) H Mean Corpuscular Hemoglobin Concent 35.8 G/DL (32.0-36.0) Red Cell Distribution Width 13.2 % (11.6-14.8) Platelet Count 185 K/UL (150-450) Mean Platelet Volume 6.9 FL (6.5-10.1) Neutrophils (%) (Auto) 49.1 % (45.0-75.0) Lymphocytes (%) (Auto) 41.0 % (20.0-45.0) Monocytes (%) (Auto) 6.8 % (1.0-10.0) Eosinophils (%) (Auto) 1.9 % (0.0-3.0) Basophils (%) (Auto) 1.2 % (0.0-2.0) Sodium Level 147 MMOL/L (136-145) H Potassium Level 3.7 MMOL/L (3.5-5.1) Chloride Level 110 MMOL/L (98-107) H Carbon Dioxide Level 26 MMOL/L (21-32) Anion Gap 11 mmol/L (5-15) Blood Urea Nitrogen 18 mg/dL (7-18) Creatinine 1.0 MG/DL (0.55-1.30) Estimat Glomerular Filtration Rate > 60 mL/min (>60) Glucose Level 99 MG/DL (74-106) Calcium Level 8.8 MG/DL (8.5-10.1) Phosphorus Level 2.7 MG/DL (2.5-4.9) Magnesium Level 2.0 MG/DL (1.8-2.4) Total Bilirubin 0.5 MG/DL (0.2-1.0) Aspartate Amino Transf (AST/SGOT) 38 U/L (15-37) H Alanine Aminotransferase (ALT/SGPT) 41 U/L (12-78) Alkaline Phosphatase 49 U/L (46-116) C-Reactive Protein, Quantitative < 0.4 mg/dL (0.00-0.90) Pro-B-Type Natriuretic Peptide 520 pg/mL (0-125) H Total Protein 6.6 G/DL (6.4-8.2) Albumin 3.3 G/DL (3.4-5.0) L Globulin 3.3 g/dL Albumin/Globulin Ratio 1.0 (1.0-2.7) Objective HEAD AND NECK: No JVD or carotid bruits. LUNGS: Clear. CARDIOVASCULAR: Regular S1 and S2 with no gallop or murmur. ABDOMEN: Soft. EXTREMITIES: No pitting edema. Axel Interiano MD Feb 20, 2020 13:59
--- NOTE | 2020-02-20 14:18 | NUR ---
ST NOTES: SWALLOW STATUS: PATIENT SEEN FOR DYSPHAGIA, SEE SWALLOW EVAL. GOALS MET FOR INTAKE 100% ON [facility] SOFT GROUND DIET AND NECTAR THICK LIQUIDS. PATIENT DISLIKES DIET/LIQUID DOWNGRADES. GIVEN THIN LIQUIDS VIA CUP SEQUENTIAL SIPS, NO OVERT ASPIRATION (WITH SELF-FEEDING). PATIENT ALSO ABLE TO SWALLOW 2 SALTINE CRACKERS TOGETHER AND WHOLE W/O CHOKING (SOME IMPULSIVITY OR HIS BASELINE BEHAVIOR). NEEDED THIN LIQUID WASH TO CLEAR SINCE THE CRACKER WAS DRY. NO OVERT ASPIRATION NOR ORAL RESIDUE. GOALS MET FOR NEW STAFF EDUCATED/TRAINED IN ASP PRECAUTIONS SIGN POSTED. WILL HOLD ON MODIFIED BARIUM SWALLOW STUDY AT THIS TIME. HE HAS SILENT ASP RISK GIVEN H/O CVA BUT HIS LUNGS ARE CLEAR. PLAN: UPGRADE TO [facility] SOFT CHOPPED AND THIN LIQUIDS. TOMORROW WILL TRY SOFT CHEW TRIAL IF HE DOES WELL WITH DINNER TONIGHT.
--- NOTE | 2020-02-20 15:38 | NUR ---
NURSE NOTES: tobacco farmworker Mckinley, wants me to communicated MD Johnson to get psych consult on this patient; I communicated the matter to MD Johnson and got the order; order carried out as order given;
[2020-02-20 16:00] VITALS: BP 129/83
--- NOTE | 2020-02-20 19:20 | NUR ---
NURSE NOTES: Received patient on bed, awake and verbally responsive. no sob. denies any pain or discomfort. no iv line. per previous nurse " patient refused iv line". reiterated to call or ask for assistance. bed locked and in lowest position. call light and light button within easy reach. will continue plan of care.
--- NOTE | 2020-02-20 19:31 | NUR ---
HAND-OFF: Report given to LIOR Coker.
[2020-02-20 20:00] VITALS: BP 157/88
[2020-02-20] MEDS: Metoprolol Tartrate 12.5mg TAB ORAL SCH (20:23)
[2020-02-20] MEDS: Enoxaparin 40mg Inj SUBQ SCH (23:54)
[2020-02-21] VITALS: BP 145/81
[2020-02-21 04:00] VITALS: BP 135/76
--- NOTE | 2020-02-21 07:16 | NUR ---
NURSE NOTES: Report received from Funmilayo TINAJERO, rounds made. Patient resting in semi-fowlers position in bed. AOx3, calm. Respirations even/unlabored on RA, denies pain, SOB, NV. Tolerating breakfast well, no cough or difficulty chewing noted. No IV access. Call light in reach, bed in lowest position, will continue to monitor.
--- NOTE | 2020-02-21 07:30 | NUR ---
HAND-OFF: Report given to blessing menard.
[2020-02-21] MEDS ORDERED: LORazepam Inj 2mg/ml 1ml IV PRN (07:45)
[2020-02-21] MEDS ORDERED: Haloperidol 5mg/ml Inj IM PRN (07:45)
[2020-02-21 08:00] VITALS: BP 129/83
--- NOTE | 2020-02-21 08:04 | NUR ---
NURSE NOTES: accidentally put in orders which is supposed to be on the admission, cancelled all wrong entry orders.
[2020-02-21] MEDS: Tamsulosin 0.4mg cap ORAL SCH ×2 (08:46→17:18)
[2020-02-21] MEDS: Metoprolol Tartrate 12.5mg TAB ORAL SCH ×2 (08:47→20:35)
[2020-02-21] MEDS: Thiamine 100mg tab ORAL SCH (08:49)
[2020-02-21] MEDS: Vitamin D 1000 IU Tab ORAL SCH (08:49)
--- NOTE | 2020-02-21 08:51 | NUR ---
BASE MANAGER NOTE Pt's legal name yrn been updated. SALTY spoke w/ Brea from [facility] office and confirmed pt is not conserved. SALTY spoke w/ Detective Connelly from Adult Missing Persons Unit that pt is not reported as missing. Addendum: 02/21/20 at 1129 by MAEGAN POND SW met w/ pt to assess his mood/needs. Pt presents as pleasant and having slow thought process. Pt reports he is feeling good. Pt continues to report he receives a couple of hundred dollars, sufficient for his living. Pt plans to return [place] on [address] upon DC. Pt reports he is ambulatory and independent w/ ADLs. Addendum: 02/21/20 at 1151 by MAEGAN POND Pt appears to be A&O 3x. SALTY attempted to contact possible family member; Darrell Urbina Jr [phone] but the call was not answered w/o vm option. SALTY is unable to locate pt's family information at this time. Addendum: 02/21/20 at 1552 by MAEGAN POND SW was informed that DC order has been placed. SALTY confirmed w/ pt that he will be returning home. Pt also verbalized that he will be able to take a bus back home. SALTY provided a map to the provided address- [address] . Bus pass will be provided. Pt does not share any concern/needs at this time.
[2020-02-21] MEDS ORDERED: Heparin 5000 units/ml inj SUBQ SCH (09:00)
--- NOTE | 2020-02-21 09:05 | NUR ---
NURSE NOTES: Received patient in bed. Awake, A/O x3. On room air. Patient denies pain at this time. No IV site, will insert a new line and start IVF. Bed rails up x2, bed low and locked, call light within reach.
--- NOTE | 2020-02-21 09:09 | Nephrology Progress Note ---
Assessment/Plan Problem List: (1) Dehydration Assessment: Hyponatremia improving (2) ALEXANDER (acute kidney injury) (3) Acute hypernatremia (4) HTN (hypertension) Assessment Patient presents with renal failure creatinine of 1.9 Most likely dehydration Hypernatremia indicative free water deficit Alcohol abuse Hydrate with D5W Monitor electrolytes and renal parameters IV thiamine Start p.o. as soon as the patient is more awake Speech therapy evaluation Per orders Plan Norvasc for blood pressure Add Lopressor Serum creatinine normalizing Discontinue IV hydration Potassium supplement as needed Monitor electrolytes and renal parameters Po folate and thiamine On regular diet now Speech therapy evaluation Per orders Discharge planning Discussed with Dr. Johnson Subjective ROS Limited/Unobtainable: No Constitutional: Reports: malaise Objective Objective Last 24 Hour Vital Signs Date Time Temp Pulse Resp B/P (MAP) Pulse Ox O2 Delivery O2 Flow Rate FiO2 02/21/20 08:47 83 129/83 02/21/20 08:47 83 129/83 02/21/20 08:00 97.9 83 19 129/83 (98) 95 02/21/20 04:00 97.3 86 22 135/76 (95) 98 02/21/20 00:00 98.1 80 18 145/81 (102) 99 02/20/20 21:00 Room Air 02/20/20 20:23 80 157/88 02/20/20 20:00 98.1 80 18 157/88 (111) 99 02/20/20 16:00 98.6 80 18 129/83 (98) 100 02/20/20 12:00 98.8 80 18 137/83 (101) 97 02/20/20 11:33 86 149/87 Intake and Output 02/20/20 02/21/20 19:00 07:00 Intake Total 900 ml 450 ml Balance 900 ml 450 ml Intake Oral 450 ml Other 900 ml # Voids 2 Height (Feet): 5 Height (Inches): 11.00 Weight (Pounds): 150 General Appearance: no apparent distress Objective no change Landon Ferguson MD Feb 21, 2020 09:09
--- NOTE | 2020-02-21 09:10 | NUR ---
HAND-OFF: Report given to Kei TINAJERO.
--- NOTE | 2020-02-21 10:59 | General Progress Note ---
Assessment/Plan Assessment/Plan: S: I am ok O: seems more awake PHYSICAL EXAMINATION: HEAD AND NECK: Atraumatic and normocephalic. CHEST: Clear to auscultation. HEART: S1 and S2. Regular rate and rhythm. ABDOMEN: Soft. No organomegaly. MUSCULOSKELETAL: No gross lateralization of motor deficit. NEUROLOGIC: The patient is less delirious. AOx 3 today DIAGNOSTIC DATA: Labs dated February 19 reviewed ASSESSMENT: 1. Acute toxic encephalopathy. 2. CVA-history of. 3. Hypernatremia. 4. Acute renal failure. 5. Dehydration. 6. Abnormal LFT. 7. GI and DVT prophylaxis. PLAN OF CARE: Continue current mgt SW- to locate RP/home safety Medically Stable. Subjective Allergies: Coded Allergies: No Known Allergies (Unverified , 02/16/20) Objective Last 24 Hour Vital Signs Date Time Temp Pulse Resp B/P (MAP) Pulse Ox O2 Delivery O2 Flow Rate FiO2 02/21/20 08:47 83 129/83 02/21/20 08:47 83 129/83 02/21/20 08:00 97.9 83 19 129/83 (98) 95 02/21/20 04:00 97.3 86 22 135/76 (95) 98 02/21/20 00:00 98.1 80 18 145/81 (102) 99 02/20/20 21:00 Room Air 02/20/20 20:23 80 157/88 02/20/20 20:00 98.1 80 18 157/88 (111) 99 02/20/20 16:00 98.6 80 18 129/83 (98) 100 02/20/20 12:00 98.8 80 18 137/83 (101) 97 02/20/20 11:33 86 149/87 Intake and Output 02/20/20 02/21/20 19:00 07:00 Intake Total 900 ml 450 ml Balance 900 ml 450 ml Intake Oral 450 ml Other 900 ml # Voids 2 Height (Feet): 5 Height (Inches): 11.00 Weight (Pounds): 150 Price Johnson MD Feb 21, 2020 10:59
--- NOTE | 2020-02-21 11:20 | NUR ---
CASE MANAGEMENT:REVIEW SI;AC TOXIC ENCEPHALOPATHY. AC RENAL FAILURE. HYPERNATREMIA. 98.1 86 22 157/88 95% ON RA NA 147 CL 110 AST 38 BNP 520 ALB 3.3 IS;K-DUR PO QD NORVASC PO QD LOPRESSOR PO Q12 HRS VIT B1 PO QD FLOMAX PO BID LOVENOX SUBQ Q24 HRS MED SURG STATUS DCP;PATIENT IS HOMELESS
--- NOTE | 2020-02-21 11:33 | NUR ---
NURSE NOTES: Patient was able to give a relatives name of Darrell Kitchen Jr. Patient did not state relation or contact number. Patient also gave an dress; [address] [place] [address]. Addendum: 02/21/20 at 1135 by Kei Roger RN CM made aware.
--- NOTE | 2020-02-21 11:54 | Cardiac Electrophysiology PN ---
Assessment/Plan Assessment/Plan 1. Accelerated hypertension as high as 170s. Better on Norvasc 5 mg b.i.d. Carlos Manuel on p.r.n. clonidine and hydralazine. 2. Heavy alcohol use. Patient is on thiamine and folate. Further evaluation by Dr. Mora. 3. Altered mental status due to the alcohol. 4. Benign prostatic hypertrophy on Flomax. 5. Severe hypernatremia. Improved with IV fluids by Dr. Ferguson. Sodium is improved from 165 to 147. 6. Hypokalemia. 7. Azotemia, again improving. Patient has already ruled out for myocardial infarction. 8. Elevated BNP of 248. Echocardiogram EF 55% DW RN Subjective Subjective Alert in NAD. DC pending. Objective Last 24 Hour Vital Signs Date Time Temp Pulse Resp B/P (MAP) Pulse Ox O2 Delivery O2 Flow Rate FiO2 02/21/20 08:47 83 129/83 02/21/20 08:47 83 129/83 02/21/20 08:00 97.9 83 19 129/83 (98) 95 02/21/20 04:00 97.3 86 22 135/76 (95) 98 02/21/20 00:00 98.1 80 18 145/81 (102) 99 02/20/20 21:00 Room Air 02/20/20 20:23 80 157/88 02/20/20 20:00 98.1 80 18 157/88 (111) 99 02/20/20 16:00 98.6 80 18 129/83 (98) 100 02/20/20 12:00 98.8 80 18 137/83 (101) 97 Intake and Output 02/20/20 02/21/20 19:00 07:00 Intake Total 900 ml 450 ml Balance 900 ml 450 ml Intake Oral 450 ml Other 900 ml # Voids 2 Objective HEAD AND NECK: No JVD or carotid bruits. LUNGS: Clear. CARDIOVASCULAR: Regular S1 and S2 with no gallop or murmur. ABDOMEN: Soft. EXTREMITIES: No pitting edema. Axel Interiano MD Feb 21, 2020 11:54
[2020-02-21 12:00] VITALS: BP 122/60
[2020-02-21 16:00] VITALS: BP 127/63
--- NOTE | 2020-02-21 16:00 | NUR ---
NURSE NOTES: Per Dr. Johnson, patient to be d/c 02/22/2020 to address provided by patient. Locate patient's pharmacy.
--- NOTE | 2020-02-21 16:16 | NUR ---
RN ANESTHETIST NOTE S/W PATIENT AT BEDSIDE. PATIENT UNABLE TO PROVIDE EXACT ADDRESS INFORMATION TO WHERE HE RESIDES OR WHERE HE WILL GO UPON DISCHARGE. STATES HE RESIDES WITH HIS BROTHER RODERICK AND HIS FATHER. UNABLE TO PROVIDE CONTACT INFO FOR FAMILY OR FRIENDS.
--- NOTE | 2020-02-21 19:08 | NUR ---
NURSE NOTES: Received patient on bed, awake and verbally responsive. no sob. respirations even and unlabored. denies any pain or discomfort. per previous nurse," there is an order for discharge planning tomorrow, needs to locate pharmacy." per case mngt notes" patient was unable to provide address. with iv line on the right upper arm. bed locked and in lowest position. call light and light button within easy reach. reiterated to call or ask for help and use the call light. patient forgets to use the call light. will continue plan of care
--- NOTE | 2020-02-21 19:10 | NUR ---
HAND-OFF: Report given to Funmilayo TINAJERO.
[2020-02-21 20:00] VITALS: BP 136/82
--- NOTE | 2020-02-21 21:00 | NUR ---
NURSE NOTES: patient unable to provide exact address for his pharmacy. " i can't remember".
[2020-02-21] MEDS: Enoxaparin 40mg Inj SUBQ SCH (23:45)
[2020-02-22] VITALS: BP 137/86
[2020-02-22 04:00] VITALS: BP 138/76
[2020-02-22 06:39] LABS: BASOPHILS % (AUTO) 1.2 % (0.0-2.0); EOSINOPHILS % (AUTO) 1.5 % (0.0-3.0); HEMATOCRIT 41.5 % (42.0-52.0); HEMOGLOBIN 14.7 G/DL (14.2-18.0); LYMPHOCYTES % (AUTO) 40.8 % (20.0-45.0); MEAN CORPUSCULAR VOLUME 91 FL (80-99); MONOCYTES % (AUTO) 8.1 % (1.0-10.0); NEUTROPHILS % (AUTO) 48.4 % (45.0-75.0); PLATELET COUNT 193 K/UL (150-450); RED BLOOD COUNT 4.58 M/UL (4.70-6.10); WHITE BLOOD COUNT 4.6 K/UL (4.8-10.8)
--- NOTE | 2020-02-22 07:44 | NUR ---
HAND-OFF: Report given to LIOR TERESA.
[2020-02-22 07:46] LABS: ALANINE AMINOTRANSFERASE 36 U/L (12-78); ALBUMIN 3.1 G/DL (3.4-5.0); ALBUMIN/GLOBULIN RATIO 0.9 (1.0-2.7); ALKALINE PHOSPHATASE 50 U/L (46-116); ANION GAP 11 mmol/L (5-15); ASPARTATE AMINO TRANSFERASE 27 U/L (15-37); BILIRUBIN,TOTAL 0.3 MG/DL (0.2-1.0); BLOOD UREA NITROGEN 16 mg/dL (7-18); CALCIUM 8.3 MG/DL (8.5-10.1); CARBON DIOXIDE 24 MMOL/L (21-32); CHLORIDE 109 MMOL/L (98-107); PHOSPHORUS 2.9 MG/DL (2.5-4.9); POTASSIUM 3.7 MMOL/L (3.5-5.1); SODIUM 144 MMOL/L (136-145)
[2020-02-22 08:00] VITALS: BP 130/76
--- NOTE | 2020-02-22 08:08 | NUR ---
NURSE NOTES: Patient alert x2, forgetful, confused; on room air, no sing of distress and shortness of breath; no sign of chest pain; IV Right-Upper arm 18G flushes well; side rails up x2, breaks engaged, bed at lowest position, bed alarm on, call light within reach; patient instructed to call for help; will keep monitoring.
--- NOTE | 2020-02-22 08:44 | Progress Note ---
DATE: 02/22/2020 SUBJECTIVE: The patient is alert, oriented, less anxious. The patient is in bed, no acute distress noted. The patient appears to be doing better today and able to answer the questions more clearly. Compliant with medications. MENTAL STATUS EXAMINATION: Alert and oriented to time self, place, and situation. Mood is neutral. Affect is flat. Thought process is concrete. Thought content, not suicidal, homicidal ideation. Cognition is improving. Insight and judgment is limited. ASSESSMENT: 1. Alcohol dependence. 2. Continue the Ativan as needed. 3. Folate. 4. Thiamine. 5. Provide the patient with reality orientation. Brett Mora M.D. DR: Polo JOB#: [id number] CC:
--- NOTE | 2020-02-22 09:28 | Nephrology Progress Note ---
Assessment/Plan Problem List: (1) Dehydration Assessment: Hyponatremia improving (2) LAEXANDER (acute kidney injury) (3) Acute hypernatremia (4) HTN (hypertension) Assessment Patient presents with renal failure creatinine of 1.9 Most likely dehydration Hypernatremia indicative free water deficit Alcohol abuse Hydrate with D5W Monitor electrolytes and renal parameters IV thiamine Start p.o. as soon as the patient is more awake Speech therapy evaluation Per orders Plan Norvasc and Lopressor for blood pressure Discharge planning in process Serum creatinine normalized Off IV hydration Potassium supplement as needed Monitor electrolytes and renal parameters Po folate and thiamine On regular diet now Speech therapy evaluation Per orders Discharge planning Discussed with Dr. Johnson Subjective ROS Limited/Unobtainable: No Objective Objective Last 24 Hour Vital Signs Date Time Temp Pulse Resp B/P (MAP) Pulse Ox O2 Delivery O2 Flow Rate FiO2 02/22/20 08:00 98.4 89 19 130/76 (94) 99 02/22/20 04:00 97.8 80 20 138/76 (96) 97 02/22/20 00:00 98.0 89 19 137/86 (103) 98 02/21/20 21:00 Room Air 02/21/20 20:35 75 135/70 02/21/20 20:00 97.2 84 17 136/82 (100) 95 02/21/20 16:00 98.1 83 17 127/63 (84) 96 02/21/20 12:00 98.2 80 12 122/60 (80) 98 Intake and Output 02/21/20 02/22/20 19:00 07:00 Intake Total 2000 ml 650 ml Balance 2000 ml 650 ml Intake Oral 400 ml 650 ml Other 1600 ml # Voids 2 Current Medications Medications (Trade) Dose Ordered Sig/Jomar Route PRN Reason Start Time Stop Time Status Last Admin Dose Admin Amlodipine Besylate (Norvasc) 10 mg DAILY ORAL 02/21/20 09:00 03/19/20 17:59 02/21/20 08:47 Enoxaparin Sodium (Lovenox) 40 mg Q24H SUBQ 02/16/20 23:45 05/16/20 23:44 02/20/20 23:54 Folic Acid (Folate) 1 mg DAILY ORAL 02/17/20 19:30 03/18/20 19:29 02/21/20 08:47 Hydralazine HCl (Apresoline) 25 mg Q4H PRN ORAL bp over 160 syst 02/18/20 08:00 05/18/20 07:59 02/19/20 12:37 Lorazepam (Ativan 2mg/ml 1ml) 2 mg Q4H PRN IM agitation/anxiety 02/17/20 19:30 02/24/20 19:29 Metoprolol Tartrate (Lopressor) 12.5 mg Q12HR ORAL 02/20/20 21:00 05/20/20 20:59 02/21/20 20:35 Ondansetron HCl (Zofran) 4 mg Q6H PRN IVP Nausea & Vomiting 02/16/20 22:45 03/17/20 22:44 Pantoprazole (Protonix) 40 mg EVERY 12 HOURS ORAL 02/18/20 21:00 03/19/20 20:59 02/21/20 20:35 Potassium Chloride (K-Dur) 40 meq DAILY ORAL 02/20/20 09:00 05/20/20 08:59 02/21/20 08:47 Tamsulosin HCl (Flomax) 0.4 mg BID ORAL 02/18/20 09:00 03/19/20 08:59 02/21/20 17:18 Thiamine HCl (Vitamin B1) 100 mg DAILY ORAL 02/18/20 14:00 03/19/20 13:59 02/21/20 08:49 Vitamin D (Vitamin D) 2,000 intlu DAILY ORAL 02/19/20 18:45 03/20/20 18:44 02/21/20 08:49 Laboratory Tests 02/22/20 05:45: White Blood Count 4.6L, Red Blood Count 4.58L, Hemoglobin 14.7, Hematocrit 41.5L , Mean Corpuscular Volume 91, Mean Corpuscular Hemoglobin 32.1H, Mean Corpuscular Hemoglobin Concent 35.5, Red Cell Distribution Width 13.0, Platelet Count 193, Mean Platelet Volume 8.2, Neutrophils (%) (Auto) 48.4, Lymphocytes (% ) (Auto) 40.8, Monocytes (%) (Auto) 8.1, Eosinophils (%) (Auto) 1.5, Basophils ( %) (Auto) 1.2, Sodium Level 144, Potassium Level 3.7, Chloride Level 109H, Carbon Dioxide Level 24, Anion Gap 11, Blood Urea Nitrogen 16, Creatinine 1.0, Estimat Glomerular Filtration Rate > 60, Glucose Level 99, Calcium Level 8.3L, Phosphorus Level 2.9, Magnesium Level 2.1, Total Bilirubin 0.3, Aspartate Amino Transf (AST/SGOT) 27, Alanine Aminotransferase (ALT/SGPT) 36, Alkaline Phosphatase 50, C-Reactive Protein, Quantitative < 0.4, Total Protein 6.4, Albumin 3.1L, Globulin 3.3, Albumin/Globulin Ratio 0.9L Height (Feet): 5 Height (Inches): 11.00 Weight (Pounds): 150 General Appearance: no apparent distress Objective no change Landon Ferguson MD Feb 22, 2020 09:28
[2020-02-22] MEDS: Tamsulosin 0.4mg cap ORAL SCH ×2 (10:19→18:00)
[2020-02-22] MEDS: Thiamine 100mg tab ORAL SCH (10:20)
[2020-02-22] MEDS: Metoprolol Tartrate 12.5mg TAB ORAL SCH (10:20)
[2020-02-22] MEDS: Vitamin D 1000 IU Tab ORAL SCH (10:20)
--- NOTE | 2020-02-22 11:43 | Cardiac Electrophysiology PN ---
Assessment/Plan Assessment/Plan 1. Accelerated hypertension as high as 170s. On Norvasc 5 mg b.i.d. Also on p.r.n. clonidine and hydralazine. 2. Heavy alcohol use. Patient is on thiamine and folate. Fu Dr. Mora. 3. Altered mental status due to the alcohol. 4. Benign prostatic hypertrophy on Flomax. 5. Severe hypernatremia. Improved with IV fluids by Dr. Ferguson. Sodium is improved from 165 to 147. 6. Hypokalemia. 7. Azotemia, again improving. Patient has already ruled out for myocardial infarction. 8. Elevated BNP of 248. Echocardiogram EF 55% Placement pending DW RN Subjective Subjective Alert in NAD. DC pending placement Objective Last 24 Hour Vital Signs Date Time Temp Pulse Resp B/P (MAP) Pulse Ox O2 Delivery O2 Flow Rate FiO2 02/22/20 10:20 89 130/76 02/22/20 10:20 89 130/76 02/22/20 08:00 98.4 89 19 130/76 (94) 99 02/22/20 04:00 97.8 80 20 138/76 (96) 97 02/22/20 00:00 98.0 89 19 137/86 (103) 98 02/21/20 21:00 Room Air 02/21/20 20:35 75 135/70 02/21/20 20:00 97.2 84 17 136/82 (100) 95 02/21/20 16:00 98.1 83 17 127/63 (84) 96 02/21/20 12:00 98.2 80 12 122/60 (80) 98 Intake and Output 02/21/20 02/22/20 19:00 07:00 Intake Total 2000 ml 650 ml Balance 2000 ml 650 ml Intake Oral 400 ml 650 ml Other 1600 ml # Voids 2 Laboratory Tests Test 02/22/20 05:45 White Blood Count 4.6 K/UL (4.8-10.8) L Red Blood Count 4.58 M/UL (4.70-6.10) L Hemoglobin 14.7 G/DL (14.2-18.0) Hematocrit 41.5 % (42.0-52.0) L Mean Corpuscular Volume 91 FL (80-99) Mean Corpuscular Hemoglobin 32.1 PG (27.0-31.0) H Mean Corpuscular Hemoglobin Concent 35.5 G/DL (32.0-36.0) Red Cell Distribution Width 13.0 % (11.6-14.8) Platelet Count 193 K/UL (150-450) Mean Platelet Volume 8.2 FL (6.5-10.1) Neutrophils (%) (Auto) 48.4 % (45.0-75.0) Lymphocytes (%) (Auto) 40.8 % (20.0-45.0) Monocytes (%) (Auto) 8.1 % (1.0-10.0) Eosinophils (%) (Auto) 1.5 % (0.0-3.0) Basophils (%) (Auto) 1.2 % (0.0-2.0) Sodium Level 144 MMOL/L (136-145) Potassium Level 3.7 MMOL/L (3.5-5.1) Chloride Level 109 MMOL/L (98-107) H Carbon Dioxide Level 24 MMOL/L (21-32) Anion Gap 11 mmol/L (5-15) Blood Urea Nitrogen 16 mg/dL (7-18) Creatinine 1.0 MG/DL (0.55-1.30) Estimat Glomerular Filtration Rate > 60 mL/min (>60) Glucose Level 99 MG/DL (74-106) Calcium Level 8.3 MG/DL (8.5-10.1) L Phosphorus Level 2.9 MG/DL (2.5-4.9) Magnesium Level 2.1 MG/DL (1.8-2.4) Total Bilirubin 0.3 MG/DL (0.2-1.0) Aspartate Amino Transf (AST/SGOT) 27 U/L (15-37) Alanine Aminotransferase (ALT/SGPT) 36 U/L (12-78) Alkaline Phosphatase 50 U/L (46-116) C-Reactive Protein, Quantitative < 0.4 mg/dL (0.00-0.90) Total Protein 6.4 G/DL (6.4-8.2) Albumin 3.1 G/DL (3.4-5.0) L Globulin 3.3 g/dL Albumin/Globulin Ratio 0.9 (1.0-2.7) L Objective HEAD AND NECK: No JVD or carotid bruits. LUNGS: Clear. CARDIOVASCULAR: Regular S1 and S2 with no gallop or murmur. ABDOMEN: Soft. EXTREMITIES: No pitting edema. Axel Interiano MD Feb 22, 2020 11:43
[2020-02-22 12:00] VITALS: BP 127/81
--- NOTE | 2020-02-22 13:20 | NUR ---
*_* INSURANCE *_* SPOKE TO JAMES FROM [place] T: [phone] F: [phone] JAMES WILL CALL TUESDAY TO START REQUESTING CLINICALS
[2020-02-22] MEDS ORDERED: LOPRESSOR25 M1 ORAL (13:40)
[2020-02-22] MEDS ORDERED: FLOMAX0.4 MG ORAL (13:40)
[2020-02-22] MEDS ORDERED: NORVASC10 MG ORAL (13:40)
--- NOTE | 2020-02-22 14:30 | NUR ---
CARPET MEASURER NOTE CALL RECEIVED FROM LIOR SANTIAGO TO INQUIRE TO THE ADDRESS WHERE PATIENT WILL BE DISCHARGED TO. INFORMED RN THAT PATIENT PROVIDED ADDRESS TO AND THIS CM WILL OBTAIN INFO AND CALL HER BACK. [address] PROVIDED TO BY PATIENT [address] [facility]. CHARGE NURSE SOHAIL JACKSON.
[2020-02-22 16:00] VITALS: BP 125/79
--- NOTE | 2020-02-22 16:48 | NUR ---
ARCHITECTURAL PROJECT MANAGER NOTE PER RN REQUEST TO SPEAK WITH PATIENT, THIS CM S/W PATIENT AT BEDSIDE IN RE TO HIS PLANS UPON DISCHARGE. PATIENT STATES HE WILL BE GOING TO [address], [facility]. STATES HIS FAMILY RESIDES AT THIS ADDRESS. RN INFORMED OF ADDRESS PROVIDED BY PATIENT.
--- NOTE | 2020-02-22 18:37 | NUR ---
NURSE NOTES: Patient discharged to the location patient provided; IV access and name tag removed; printed package and original prescription provided to patient; belonging list singed by patient and discharging nurse; bus tab provided; patient stable upon discharge.
--- NOTE | 2020-02-24 13:58 | Discharge Summary ---
Discharge Summary Discharge Summary _ DATE OF ADMISSION: 02/16/2020 DATE OF DISCHARGE: 02/22/2020 DISCHARGED BY: Dr. Price Johnson CONSULTANTS: Dr. Axel Mora [facility] COURSE: Patient is a 69-year-old -[place] male, who presented to ED with confusion. He was found to have high level of sodium. Presumptively, patient had been using high levels of alcohol. EMS was called by a bystander. Per EMS , he had a strong scent of alcohol. He was originally [place] Pena upon arrival. He denied any past medical history and denied any medication. Upon evaluation at the ED, vital signs were stable. Blood work did not show any leukocytosis. Hemoglobin and hematocrit were stable. Sodium was elevated to 159. Creatinine 1.9. Urine toxicology was negative. Serum alcohol level less than 3. Acetaminophen less than 2. Salicylate 1.7. Urinalysis was essentially normal. Patient was arousable and provided limited HPI. He was given IV hydration. CT of the head showed diffuse encephalomalacia and small vessel disease with old thalamic infarct. No acute intracranial process. He was then admitted for acute toxic encephalopathy. He was given IV hydration. Patient has alcohol abuse and was given thiamine and folate. Blood pressure was elevated. He was given prn clonidine and hydralazine. He was started on Norvasc twice daily. Sodium level improved with IV hydration. Patient presented with elevated BNP of 248. Echocardiogram showed ejection fraction of 55%. Mentation eventually improved. highway maintenance crew worker was consulted. Attempted to contact possible family members. Unable to locate family. There was no report of adult missing person. Patient was not conserved. He was eventually discharged home. FINAL DIAGNOSES: Acute toxic encephalopathy, resolved History of CVA Hyponatremia Acute renal failure Dehydration Abnormal LFT DISPOSITION: Patient was discharged home. DISCHARGE MEDICATIONS: Refer to Discharge Medication List. DISCHARGE INSTRUCTIONS: Follow-up in a week. I have been assigned to complete a discharge summary on this account, I was not involved with the patient's management.--RC Acosta Jacqueline Robles NP Feb 24, 2020 13:58
== END 2020-02-22 18:30 | disposition home or self-care (01) | DRG 682 ==
LOC: EDBD 16:07 → EMR 16:57 → EDBD 17:32 → 4E 17:32 → EDBEDREQ 22:21 → EDBEDREQSVC 22:21 → EDBEDREQ 22:54 → 4E 02-17 04:47
DX: N17.9 Acute kidney failure, unspecified (principal); G92 Toxic encephalopathy; E87.0 Hyperosmolality and hypernatremia; E86.0 Dehydration; Z86.73 Personal history of transient ischemic attack (TIA), and cerebral infarction without residual deficits; R94.5 Abnormal results of liver function studies; F10.129 Alcohol abuse with intoxication, unspecified; N40.0 Benign prostatic hyperplasia without lower urinary tract symptoms
CPT/HCPCS: 36415; 70450; 76770; 80053; 80061; 80307; 81001; 82436; 82977; 83036; 83735; 83880; 83930; 84100; 84133; 84300; 84443; 84484; 84550; 85025; 86140; 87081; 93306; 96360; 96361; 99285; G0480; J8499